=== PATIENT | male | born 1955 | race Caucasian/White ===

== ENCOUNTER → 2020-06-22 10:29 | Outpatient (REF) | payer OTHER, SELFPAY ==
--- NOTE | 2020-06-22 10:30 | CA_ITS ---
Transthoracic Echocardiogram Patient (Last, First, Middle): Delfin White G Gender: Male Date of : 1955 Age: 64 Procedure Date: 06/22/2020 Procedure Type: Transthoracic Echocardiogram Location: OP Height: 162.56 cm Weight: 108.86 kg BSA: 2.11 m2 Heart Rate: bpm BP: 110 / 80 mmHg Trenching Machine Operator: BLAIRE Prieto MD: Joe Hernandez MD Operators School Manager: Chris Logan MD Symptoms: Z95.3 S/P AVR W BIO PROS, I48.0 PAF, I44.7 LBBB Study Quality: Fair ECG Rhythm: Sinus Conclusions: - 1. Low normal LV systolic function with pseudonormal filling pattern 2. Moderately dilated left atrium 3. Bioprosthetic aortic valve present with normal calculated effective orifice area with mean gradient of 12 mm of mercury 4. Mild mitral regurgitation 5. Normal RV systolic pressure 6. No pericardial effusion Findings Left Ventricle Normal left ventricular cavity size. There is normal left ventricular wall thickness. The left ventricular systolic function is low normal. The visually estimated ejection fraction is between 50-55%. There is paradoxical septal motion consistent with a left bundle branch block. Spectral Doppler is indicative of a pseudonormal filling pattern. E/E prime ratio is between 8 and 15 consistent with indeterminate filling pressures. Right Ventricle Normal right ventricular cavity size and systolic function. Atria The left atrium is moderately dilated. There is lipomatous hypertrophy of the interatrial septum. There is no evidence of interatrial shunt. The right atrium is mildly dilated. Aortic Valve A bioprosthetic aortic valve is present. The prosthetic aortic valve appears to be functioning normally. The aortic valve was not well visualized. The mean gradient is 12 mmHg. The valve is well seated without any abnormal rocking motion. The leaflets are not well visualized. Calculated effective orifice area is within normal limits Mitral Valve There is mild anterior and severe posterior mitral leaflet thickening. There is severe mitral annular calcification. There is mild mitral valve regurgitation. There is no mitral valve stenosis. Pulmonic Valve The pulmonic valve was not well visualized. Tricuspid Valve Likely normal tricuspid valve structure and function. There is mild tricuspid valve regurgitation. The right ventricular systolic pressure is normal. The right ventricular systolic pressure is 28 mmHg. Normal right atrial pressure. There is no evidence of pulmonary hypertension. Great Vessels All visible segments of the aorta are normal in size. The pulmonary artery was not well visualized. Venous The inferior vena cava is normal in size and collapses greater than 50% with inspiration. Pericardium/Pleural There is no evidence of pericardial effusion. Prior Study Comparison No significant change compared to prior study dated: 05/26/2019. Measurements 2D Linear Measurements IVSd: 1.08 0.6-0.9/0.6-1.0 cm LVIDd: 5.73 3.9-5.3/4.2-5.9 cm LVIDd Index: 2.72 2.4-3.2/2.2-3.1 cm/m2 LVIDs: 3.95 2.0-3.6 cm LVPWd: 1.04 0.7-1.1 cm LA Diam: 4.70 2.7-3.8/3.0-4.0 cm LAIDs Index: 2.23 1.5-2.3 cm/m2 LV Mass: 307.43 67-162/88-224 g LV Mass Index: 145.70 43-95/49-115 g/m2 LVOT Diam: 2.00 3.0+(-)1.3 cm 2D Systolic Function EF 4C: 55.50 >55% EF 2C: 56.30 >55% EF BiP: 56.10 >55% Mitral Valve MV Pk E: 1.23 MV PK A: 1.13 MV Decel Time: 319.00 E/A: 1.10 E'Lateral: 8.49 E'Medial: 4.24 E/E' Med: 29.00 E/E' Lat: 14.50 PHT: 93.00 MVA PHT: 2.37 Decel Jones: 3.86 Aortic Valve AoV Pk Garret: 2.24 AoV Mn Garret: 1.60 AoV VTI: 0.50 AoV Pk Grad: 20.00 Aov Mn Grad: 12.00 SONY Cont.VTI: 2.14 LVOT LVOT Pk Garret: 1.52 LVOT Mn Garret: 1.02 LVOT VTI: 0.34 LVOT Pk Grad: 9.00 LVOT Mn Grad: 5.00 LVOT Diam: 2.00 LVOT Area: 3.14 Diastolic Function MV Pk E: 1.23 MV Pk A: 1.13 E/A: 1.10 E'Medial: 4.24 E/E' Med: 29.00 E' Laterial: 8.49 E/E' Lat: 14.50 Tricuspid Valve TR Pk Garret: 2.49 TR Pk Grad: 25.00 RA Press: 3.00 RVSP: 28.00 Great Vessels Aorta Ao Asc: 2.80 2.1-3.4 cm Ao Arch: 2.80 Updated in Other Vendor System with Status of Final Chris Logan MD electronically signed on 06/23/2020 12:18:09 PM with status of Final
== END ==
LOC: HO.CARD 10:29
PROVIDERS: PCP Internal Medicine; Visit Provider Internal Medicine
DX: I48.0 Paroxysmal atrial fibrillation (principal); I44.7 Left bundle-branch block, unspecified; Z95.3 Presence of xenogenic heart valve
CPT/HCPCS: 93306

== ENCOUNTER → 2020-07-11 09:35 | Outpatient (BNVA) | payer OTHER, SELFPAY | PROVIDERS: PCP Internal Medicine; Visit Provider Internal Medicine | DX: I48.0 Paroxysmal atrial fibrillation (principal); I44.7 Left bundle-branch block, unspecified; G47.33 Obstructive sleep apnea (adult) (pediatric); Z95.3 Presence of xenogenic heart valve; Z99.89 Dependence on other enabling machines and devices | CPT/HCPCS: 99212 ==

== ENCOUNTER → 2020-12-27 10:11 | Outpatient (BNVA) | payer OTHER, SELFPAY | PROVIDERS: PCP Internal Medicine; Referring Provider Internal Medicine; Visit Provider Internal Medicine | DX: I48.0 Paroxysmal atrial fibrillation (principal); I44.7 Left bundle-branch block, unspecified; G47.33 Obstructive sleep apnea (adult) (pediatric); Z99.89 Dependence on other enabling machines and devices; Z95.3 Presence of xenogenic heart valve; Z79.899 Other long term (current) drug therapy | CPT/HCPCS: 99212 ==

== ENCOUNTER → 2021-07-04 09:44 | Outpatient (BNVA) | payer OTHER, SELFPAY | PROVIDERS: PCP Internal Medicine; Referring Provider Internal Medicine; Visit Provider Internal Medicine | DX: I48.0 Paroxysmal atrial fibrillation (principal); I44.7 Left bundle-branch block, unspecified; G47.33 Obstructive sleep apnea (adult) (pediatric); Z79.01 Long term (current) use of anticoagulants; Z79.899 Other long term (current) drug therapy; Z95.3 Presence of xenogenic heart valve; Z99.89 Dependence on other enabling machines and devices | CPT/HCPCS: 93005; 99212 ==

== ENCOUNTER → 2021-12-24 09:30 | Outpatient (REF) | payer OTHER, SELFPAY ==
--- NOTE | 2021-12-24 09:33 | CA_ITS ---
Transthoracic Echocardiogram Patient (Last, First, Middle): Delfin White G Gender: Male Date of : 1955 Age: 66 Procedure Date: 12/24/2021 Procedure Type: Transthoracic Echocardiogram Location: OP Height: 165.1 cm Weight: 122.47 kg BSA: 2.25 m2 Heart Rate: bpm BP: 130 / 85 mmHg Spinning Lathe Operator Automatic: FIDE Referring MD: Joe Hernandez MD Symptoms: Z95.3 - Presence of xenogenic heart valve Study Quality: Adequate Conclusions: - 1. Low normal LV systolic function with LVEF of 50-55% with pseudonormal filling pattern 2. Normally function bioprosthetic aortic valve with mean gradient of 11 mmHg 3. Mildly dilated left atrium 4. Severe mitral calcification 5. Normal RV systolic pressure 6. No gross pericardial effusion Findings Left Ventricle Normal left ventricular cavity size. There is normal left ventricular wall thickness. The left ventricular systolic function is low normal. The visually estimated ejection fraction is between 50-55%. There is paradoxical septal motion consistent with post-operative status. Spectral Doppler is indicative of a pseudonormal filling pattern. Right Ventricle Normal right ventricular cavity size and systolic function. Atria The left atrium is mildly dilated. There is no evidence of interatrial shunt. The right atrium is normal in size. Aortic Valve A bioprosthetic aortic valve is present. The prosthetic aortic valve appears to be functioning normally. The mean gradient is 11 mmHg. There is no aortic valve regurgitation. The valve is well seated without any abnormal rocking motion. Mitral Valve There is moderate anterior and severe posterior mitral leaflet thickening. There is severe mitral annular calcification. There is no mitral valve regurgitation. There is no mitral valve stenosis. Pulmonic Valve The pulmonic valve was not well visualized. Tricuspid Valve Normal tricuspid valve structure. There is mild tricuspid valve regurgitation. The right ventricular systolic pressure is normal. The right ventricular systolic pressure is 30 mmHg. Normal right atrial pressure. There is no evidence of pulmonary hypertension. Great Vessels All visible segments of the aorta are normal in size. The pulmonary artery was not well visualized. Venous The inferior vena cava is normal in size and collapses greater than 50% with inspiration. Pericardium/Pleural There is no evidence of pericardial effusion. Prior Study Comparison No significant change compared to prior study dated: 06/22/2020. Measurements 2D Linear Measurements IVSd: 1.15 0.6-0.9/0.6-1.0 cm LVIDd: 5.57 3.9-5.3/4.2-5.9 cm LVIDd Index: 2.48 2.4-3.2/2.2-3.1 cm/m2 LVIDs: 4.08 2.0-3.6 cm LVPWd: 1.05 0.7-1.1 cm LA Diam: 4.60 2.7-3.8/3.0-4.0 cm LAIDs Index: 2.04 1.5-2.3 cm/m2 LV Mass: 308.14 67-162/88-224 g LV Mass Index: 136.95 43-95/49-115 g/m2 LVOT Diam: 2.00 3.0+(-)1.3 cm 2D Systolic Function EF 4C: 50.90 >55% EF 2C: 51.30 >55% Mitral Valve MV Pk E: 1.47 MV PK A: 0.96 MV Decel Time: 217.00 E/A: 1.50 E'Lateral: 7.51 E'Medial: 5.00 E/E' Med: 29.40 E/E' Lat: 19.60 PHT: 63.00 MVA PHT: 3.49 Decel [place]: 6.77 Aortic Valve AoV Pk Garret: 2.17 AoV Mn Garret: 1.59 AoV VTI: 0.53 AoV Pk Grad: 19.00 Aov Mn Grad: 11.00 SONY Cont.VTI: 2.02 LVOT LVOT Pk Garret: 1.42 LVOT Mn Garret: 0.99 LVOT VTI: 0.34 LVOT Pk Grad: 8.00 LVOT Mn Grad: 5.00 LVOT Diam: 2.00 LVOT Area: 3.14 Diastolic Function MV Pk E: 1.47 MV Pk A: 0.96 E/A: 1.50 E'Medial: 5.00 E/E' Med: 29.40 E' Laterial: 7.51 E/E' Lat: 19.60 Right Ventricle TAPSE (mm): 20.90 TVS' Garret: 8.27 Tricuspid Valve TR Pk Garret: 2.37 TR Pk Grad: 22.00 RA Press: 8.00 RVSP: 30.00 Great Vessels Aorta Sinus of Valsalva: 3.38 2.0-3.5 cm Ao Asc: 3.40 2.1-3.4 cm Ao Arch: 3.00 Updated in Other Vendor System with Status of Final Chris Logan MD electronically signed on 12/24/2021 4:18:20 PM with status of Final
== END ==
LOC: HO.CARD 09:30
PROVIDERS: Visit Provider Internal Medicine
DX: Z95.3 Presence of xenogenic heart valve (principal)
CPT/HCPCS: 93306

== ENCOUNTER → 2022-07-17 12:46 | Outpatient (BNVA) | payer MEDICARE, OTHER, SELFPAY | PROVIDERS: PCP Internal Medicine; Referring Provider Internal Medicine; Visit Provider Internal Medicine | DX: I48.0 Paroxysmal atrial fibrillation (principal); I44.7 Left bundle-branch block, unspecified; Z95.3 Presence of xenogenic heart valve; G47.33 Obstructive sleep apnea (adult) (pediatric); Z99.89 Dependence on other enabling machines and devices | CPT/HCPCS: 93005; 99212 ==

== ENCOUNTER 2022-11-04 10:31 | Observation (INO) | payer MEDICARE, SELFPAY ==
[2022-11-04] VITALS (7 sets, daily range): BP systolic 111–145; BP diastolic 63–84; PULSE 57–70; RESP 10–20; TEMP 36.6–37.1; O2SAT 96–98; BMI 46.3
--- NOTE | ~2022-11-04 | MR_ITS ---
EXAMINATION: MRI BRAIN WITHOUT CONTRAST CLINICAL INFORMATION: Dizziness. COMPARISON: CT head 11/04/2022. TECHNIQUE: Multiplanar MR imaging of the brain was performed without contrast. FINDINGS: There are a few tiny chronic infarcts within the right cerebellar hemisphere and scattered nonspecific foci of T2 FLAIR signal hyperintensity within the periventricular white matter that most likely represent a chronic manifestation of small vessel ischemia. No acute territorial infarct. No pathological magnetic susceptibility artifact. Intracranial vascular flow voids are grossly maintained. There is a small retrocerebellar arachnoid cyst. Otherwise no abnormal extra-axial collection. No intracranial mass effect or midline shift. Lateral and third ventricles are normal. No hydrocephalus. Midline structures including the cervicomedullary junction are normal. There is no mastoid or middle ear effusion. Mild paranasal sinus disease primarily affecting the ethmoid air cells. Globes and orbits are symmetric. MR/MR head/brain wo con IMPRESSION: There are a few tiny chronic infarcts within the right cerebellar hemisphere and scattered chronic small vessel ischemic changes within the periventricular white matter. Otherwise unremarkable examination. No evidence of acute territorial infarct or hemorrhage.
--- NOTE | ~2022-11-04 | CT_ITS ---
EXAMINATION: CT HEAD WITHOUT CONTRAST CLINICAL INFORMATION: Dizziness. COMPARISON: None. TECHNIQUE: Contiguous axial imaging was performed from the skull base to vertex without intravenous administration of contrast. This CT examination was performed using dose optimization techniques as appropriate, variously including the following: *Automated exposure control *Adjustment of mA and/or kV according to patient size (this includes techniques or standardized protocols for targeted exams where dose is matched to indication/reason for exam; i.e. 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 There is no evidence of acute intracranial hemorrhage or edematous territorial infarction. A few foci of hypoattenuation in the periventricular and deep white matter are consistent with mild microangiopathy. Sanchez-white matter differentiation is preserved. Proportional prominence of the ventricles and sulcal spaces. No evidence for obstructive hydrocephalus. No abnormal mass effect or midline shift. No extra-axial fluid collections. Megacisterna magna. No acute soft tissue or osseous abnormalities. The mastoid air cells and paranasal sinuses are clear. CT/CT head/brain wo IV con IMPRESSION: 1. Small age-indeterminate hypodensity in the right inferior cerebellar hemisphere. If neurologic deficits persist and an acute cerebrovascular accident is suspected, correlation with an MR brain is recommended. 2. No evidence of acute intracranial hemorrhage or edematous territorial infarction.
[2022-11-04 11:04] LABS: Hematocrit 42.2 % (42.0-52.0); Mean Corpuscular HGB Conc 33.2 g/dl (31.0-36.0); Mean Corpuscular Volume 96.3 fL (80.0-98.0); Mean Platelet Volume 9.7 fL (9.4-12.4); Platelet Count 223 X10*3/uL (160-400); Red Blood Count 4.38 X10*6/uL (4.60-5.80); Red Cell Distribution Width 12.6 % (11.0-16.0); White Blood Count 6.6 X10*3/uL (4.8-10.8)
[2022-11-04 11:17] LABS: Anion Gap 12 (12-20); Blood Urea Nitrogen 19 mg/dL (9-16); Calcium 9.6 mg/dL (8.4-10.2); Carbon Dioxide 26 mmol/L (22-29); Chloride 108 mmol/L (96-108); Creatinine Clr Calc Pharmacy 102.3; Estimated Glomerular Filt Rate > 60; Glucose Random 127 mg/dL (60-115); Potassium 5.5 mmol/L (3.3-5.1); Sodium 140 mmol/L (135-145)
--- NOTE | 2022-11-04 14:35 | ECG_ITS ---
Test Reason : LIGHT HEADEDNESS Blood Pressure : / mmHG Vent. Rate : 061 BPM Atrial Rate : 061 BPM P-R Int : 208 ms QRS Dur : 148 ms QT Int : 476 ms P-R-T Axes : 023 -36 063 degrees QTc Int : 479 ms Normal sinus rhythm Left axis deviation Left bundle branch block Abnormal ECG When compared with ECG of 15-JAN-2019 06:04, No significant changes seen Referred By: Andree Davila Electronically Signed By:ILANA URIARTE
--- NOTE | 2022-11-04 14:57 | ED.DIZZY ---
HPI - Dizziness General Chief Complaint: Dizziness Stated Complaint: dizzy spills Time Seen by Provider: 11/04/22 14:33 Source: patient Mode of arrival: ambulatory History of Present Illness HPI Narrative: 67-year-old male with history of paroxysmal atrial fibrillation as well as aortic valve replacement currently on Eliquis and states that he is taking all his medications and he has not missed any. Patient states that for the past couple of weeks he has been lightheaded and it does not seem to be associated with any activity or time of day. Patient denies the room spinning and states that over the past for 5 days the episodes have become more constant and that he notices while watching the TV sometimes his eyes will become blurry but then clear wrap again but otherwise denies any auditory/visual/speech difficulties and denies any difficulty ambulating or unilateral numbness/tingling/weakness. Related Data Home Medications Medication Instructions Recorded Confirmed celecoxib 200 mg capsule 200 mg PO BID 07/11/20 07/17/22 folic acid 1 mg tablet 1 mg PO DAILY 07/11/20 07/17/22 methotrexate sodium 2.5 mg tablet 20 mg PO QWEEK 07/11/20 07/17/22 Previous Rx's Medication Instructions Recorded metoprolol tartrate 25 mg tablet 25 mg PO BID 90 days #180 tabs 11/20/21 apixaban 5 mg tablet (Eliquis) 5 mg PO BID #180 caps 10/28/22 Allergies Allergy/AdvReac Type Severity Reaction Status Date / Time No Known Allergies Allergy Verified 07/04/21 09:58 [No Known Allergies*] Review of Systems Review of Systems: Pertinent positives and negatives as stated in HPI [facility] Past Medical History Source: nursing notes reviewed Medical History LBBB (left bundle branch block) JANNETTE on CPAP PAF (paroxysmal atrial fibrillation) Rheumatoid arthritis, unspecified Surgical History History of cardiac cath Hx of cardiac cath Status post aortic valve replacement with bioprosthetic valve Family History Family History Mother No problems noted. Father No problems noted. Social History Social History Patient Tobacco Use Status: Former Tobacco user Quit Date: 18 yrs ago Smoked in Last 30 Days: No Use of substances other than those prescribed or required for medical reasons: No Advance Directives: No Advance Directives Information Provided: No Physical Exam Vital Signs: Vital Signs: Last Vital Signs Temp 97.8 F 11/04/22 19:00 Pulse 59 11/04/22 19:00 Resp 14 11/04/22 19:00 BP 140/64 H 11/04/22 19:00 Pulse Ox 96 11/04/22 19:00 O2 Del Method Room Air 11/04/22 19:00 BMI result Body Mass Index 46.3 VITAL SIGNS: Reviewed. GENERAL: Well developed, well nourished, in no acute distress. HEAD: Normocephalic/atraumatic EYES: PERRLA, EOMI EARS: Ext canals without abnormality EXCEPT left external canal there is what appears to be a benign polyp has smooth contours no ulcerations and no erythema, TMs non-bulging and non-erythematous NOSE: Nares patent bilateral OROPHARYNX: no oral lesions noted, posterior pharynx clear NECK: Supple, no adenopathy LUNGS: Normal breath sounds. No adventitious sounds or accessory muscle use. SpO2<> CARDIOVASCULAR: Regular rate and rhythm without noted murmurs, no JVD or lower extremity edema. ABDOMEN: Soft, non-tender, non-distended with bowel sounds. No rigidity. No guarding. No palpable masses or hernias noted MUSCULOSKELETAL: No tenderness, deformities, or effusions noted on gross inspection. EXTREMITIES: No cyanosis, clubbing or edema. SKIN: Inspection of the skin reveals no rashes, ulcerations, jaundice, pallor, or petechiae. NEUROLOGIC: Alert and oriented x 4. Strength and sensation to light touch were grossly intact x 4, no facial asymmetry, no pronator drift, cranial nerves 2-12 are grossly intact, heel to anderson is intact, no truncal ataxia and ambulation gait is steady. Medications Administered Discontinued Medications Generic Name Dose Route Start Last Admin Trade Name Freq PRN Reason Stop Dose Admin Sodium Chloride 1,000 mls @ 999 mls/hr 11/04/22 15:00 11/04/22 18:00 Ns IV 11/04/22 16:00 Infused .Q1H1M BJ Infusion Medical Decision Making Medical Decision Making MDM Narrative: 67-year-old male who reports being dizzy during the interview process but appears hemodynamically stable, nonfocal but on blood thinners and will pursue head CT. Orthostatics are pending and otherwise review lab work done so far there is no evidence infection, anemia, however there is a noted hyperkalemia of 5.5. 182: I was not called on the CT scan which was officially read by Radiology as an age indeterminate hypodensity at the right inferior cerebellar region, patient is already on anticoagulation with Eliquis, his feelings of lightheadedness continue to persist, after 1 L of IV fluids and repeat basic metabolic panel his potassium level has improved. I am reaching out to Neurology as are MRI department has left. 1919: I discussed case with Neurology, Dr. Thomas, who agrees that should follow-up with MRI in the morning and that there are no other acute interventions to be done at this time. Differential Diagnosis Please see the discussion above Consult Healthcare Provider Management of the patient was discussed with: Hospitalist and Associate Counsel Please see the discussion above Lab Data Please see the discussion above 11/04/22 10:54 11/04/22 10:54 Labs: Lab Results 11/04/22 11/04/22 11/04/22 Range/Units 10:54 10:54 15:19 WBC 6.6 (4.8-10.8) X10*3/uL RBC 4.38 L (4.60-5.80) X10*6/uL Hgb 14.0 (14.0-18.0) g/dl Hct 42.2 (42.0-52.0) % MCV 96.3 (80.0-98.0) fL MCH 32.0 (27.0-33.0) pg MCHC 33.2 (31.0-36.0) g/dl RDW 12.6 (11.0-16.0) % Plt Count 223 (160-400) X10*3/uL MPV 9.7 (9.4-12.4) fL Absolute Nucleated RBC 0.000 (0.0-0.012) X10*3/uL Nucleated RBC % (auto) 0.0 (0.0-0.2) /100WBC PT 13.0 (10.0-13.1) SEC INR 1.1 (0.9-1.1) Sodium 140 (135-145) mmol/L Potassium 5.5 H (3.3-5.1) mmol/L Chloride 108 (96-108) mmol/L Carbon Dioxide 26 (22-29) mmol/L Anion Gap 12 (12-20) BUN 19 H (9-16) mg/dL Creatinine 0.86 (0.5-1.4) mg/dL Estim Creat Clear Calc 102.3 Estimated GFR > 60 Random Glucose 127 H (60-115) mg/dL Calcium 9.6 (8.4-10.2) mg/dL Magnesium 1.9 (1.6-2.6) mg/dL Troponin I High Sens (<3.5-35.0) ng/L Urine Color Urine Appearance Urine pH (5.0-9.0) Ur Specific [place] (1.005-1.025) Urine Protein (Neg-Trace) mg/dL Urine Glucose (UA) (Negative) mg/dL Urine Ketones (Negative) mg/dL Urine Blood (Negative) Urine Nitrite (Negative) Ur Leukocyte Esterase (Negative) 11/04/22 11/04/22 11/04/22 Range/Units 15:19 16:02 17:24 WBC (4.8-10.8) X10*3/uL RBC (4.60-5.80) X10*6/uL Hgb (14.0-18.0) g/dl Hct (42.0-52.0) % MCV (80.0-98.0) fL MCH (27.0-33.0) pg MCHC (31.0-36.0) g/dl RDW (11.0-16.0) % Plt Count (160-400) X10*3/uL MPV (9.4-12.4) fL Absolute Nucleated RBC (0.0-0.012) X10*3/uL Nucleated RBC % (auto) (0.0-0.2) /100WBC PT (10.0-13.1) SEC INR (0.9-1.1) Sodium 143 (135-145) mmol/L Potassium 5.0 (3.3-5.1) mmol/L Chloride 108 (96-108) mmol/L Carbon Dioxide 27 (22-29) mmol/L Anion Gap 13 (12-20) BUN 18 H (9-16) mg/dL Creatinine 0.78 (0.5-1.4) mg/dL Estim Creat Clear Calc 112.8 Estimated GFR > 60 Random Glucose 87 (60-115) mg/dL Calcium 9.4 (8.4-10.2) mg/dL Magnesium (1.6-2.6) mg/dL Troponin I High Sens 3.8 (<3.5-35.0) ng/L Urine Color Yellow Urine Appearance Clear Urine pH 6.0 (5.0-9.0) Ur Specific [place] <= 1.005 (1.005-1.025) Urine Protein Negative (Neg-Trace) mg/dL Urine Glucose (UA) Negative (Negative) mg/dL Urine Ketones Negative (Negative) mg/dL Urine Blood Negative (Negative) Urine Nitrite Negative (Negative) Ur Leukocyte Esterase Negative (Negative) Independent Interpretation I performed an independent interpretation of an: EKG Interpretation: Normal sinus rhythm with first-degree AV block, LBBB at baseline, no STEMI, QTC is within normal limits. Radiology Impression Radiologist Impression: My interpretation is in agreement with radiology's impression. External Record Review External record reviewed: Outpatient record and Prior outpatient labs Chronic Conditions Patient?s care impacted by: Hypertension and Other Paroxysmal atrial fibrillation Discharge Plan Discharge Clinical Impression: CVA (cerebrovascular accident), PAF (paroxysmal atrial fibrillation), Lightheadedness Patient Disposition: Admitted As Inpatient Prescriptions: No Action metoprolol tartrate 25 mg tablet 25 mg PO BID 90 Days Qty: 180 3RF Eliquis 5 mg tablet 5 mg PO BID Qty: 180 3RF folic acid 1 mg tablet 1 mg PO DAILY methotrexate sodium 2.5 mg tablet 20 mg PO QWEEK celecoxib 200 mg capsule 200 mg PO BID
[2022-11-04 15:38] LABS: INTERNATIONAL NORM RATIO 1.1 (0.9-1.1)
[2022-11-04 15:47] LABS: Magnesium 1.9 mg/dL (1.6-2.6)
[2022-11-04 15:56] LABS: Troponin-I High Sensitivity 3.8 ng/L (<3.5-35.0)
[2022-11-04 16:11] LABS: Appearance Urine Clear; Color Urine Yellow; Glucose Urine UA Negative (Negative); Leukocyte Esterase Urine Negative (Negative); Nitrite Urine Negative (Negative); Specific Gravity - Urine <= 1.005 (1.005-1.025); Urine Blood Negative (Negative); Urine Ketones Negative (Negative); Urine Protein Negative (Neg-Trace)
[2022-11-04] MEDS: 0.9 % Sodium Chloride 1,000 ML 999 ML IV (16:28)
[2022-11-04 17:50] LABS: Anion Gap 13 (12-20); Blood Urea Nitrogen 18 mg/dL (9-16); Calcium 9.4 mg/dL (8.4-10.2); Carbon Dioxide 27 mmol/L (22-29); Chloride 108 mmol/L (96-108); Creatinine Clr Calc Pharmacy 112.8; Estimated Glomerular Filt Rate > 60; Glucose Random 87 mg/dL (60-115); Sodium 143 mmol/L (135-145)
--- NOTE | 2022-11-04 18:34 | PC.NURSE ---
MRI screening sheet filled out tonight and placed in his chart. patient continues with some dizziness and stated that it is positional.
--- NOTE | 2022-11-04 20:12 | P.HPHOSP_ITS ---
History of Present Illness Date of Service: 11/04/22 <JERMAINE Cunningham - Last Filed: 11/04/22 20:25> Attending physician on admission: Luis Lyman <JERMAINE Cunningham - Last Filed: 11/04/22 20:25> Chief Complaint: dizziness <JERMAINE Cunningham - Last Filed: 11/04/22 20:25> 67-year-old male with history of paroxysmal atrial fibrillation anticoagulated with Eliquis, left bundle branch block s/p cardiac catheterization, history aortic stenosis s/p TAVR, obstructive sleep apnea compliant with CPAP, and rheumatoid arthritis presented to the emergency department for evaluation of lightheadedness. Reports he had a single episode of lightheadedness that lasted for several days about 1 month ago but then resolved. He had recurrence of symptoms about 4 days ago that has persisted. Describes this as a room spinning dizziness that occurs primarily with change of position and head movements. There is occasionally nausea and vomiting with blurred vision. He denies any symptoms currently. Denies any focal weakness, paresthesias, diplopia, dysphagia, slurred speech, facial droop, near syncope, palpitations, shortness of breath, or chest pain. No history of CVA. Reports compliance with medications including Eliquis. On arrival, vital signs stable. No leukocytosis. No anemia. Renal function normal, electrolyte levels normal. Troponin within normal limits. Urinalysis unremarkable. Head CT showing small age-indeterminate hypodensity in right inferior cerebellar hemisphere, correlate with MR brain. No evidence of acute intracranial hemorrhage or territorial infarct. In the ED, given 1 L IV NS. <JERMAINE Cunningham - Last Filed: 11/04/22 20:25> Review of Systems Review of Systems: General: No fevers, malaise, unintentional weight loss HEENT: No blurred vision, diplopia. No sore throat, nasal congestion, rhinorrhea, sinus pain, ear pain Cardiovascular: No chest pain, palpitations, or leg edema Respiratory: No shortness of breath, wheezing, cough GI: No abdominal pain, nausea, vomiting, diarrhea, constipation, melena, hematochezia : No dysuria, hematuria, increased urinary frequency, decreased urinary output MSK: No myalgia, back pain Neuro: No headaches, weakness, paresthesias. +dizziness Skin: No rashes or lesions <JERMAINE Cunningham - Last Filed: 11/04/22 20:25> FOR[facility]LY [facility] Medical History: Medical History (Updated 11/04/22 @ 20:18 by JERMAINE Cunningham) CVA (cerebrovascular accident) LBBB (left bundle branch block) JANNETTE on CPAP PAF (paroxysmal atrial fibrillation) Rheumatoid arthritis, unspecified <JERMAINE Cunningham - Last Filed: 11/04/22 20:25> Family History: Family History Mother No problems noted. Father No problems noted. <JERMAINE Cunningham - Last Filed: 11/04/22 20:25> Surgical History: Surgical History History of cardiac cath Hx of cardiac cath Status post aortic valve replacement with bioprosthetic valve <JERMAINE Cunningham - Last Filed: 11/04/22 20:25> Social History: Social History Patient Tobacco Use Status: Former Tobacco user Quit Date: 18 yrs ago Smoked in Last 30 Days: No Use of substances other than those prescribed or required for medical reasons: No Advance Directives: No Advance Directives Information Provided: No <JERMAINE Cunningham - Last Filed: 11/04/22 20:25> Meds Allergies/Adverse reactions: Allergies Allergy/AdvReac Type Severity Reaction Status Date / Time No Known Allergies Allergy Verified 07/04/21 09:58 [No Known Allergies*] <JERMAINE Cunningham - Last Filed: 11/04/22 20:25> Active Medications: Current Medications Acetaminophen (Acetaminophen 325 Mg Tablet) 650 mg PO Q6H PRN PRN Reason: Pain, Mild (Pain Scale 1-3) Aspirin (Aspirin Enteric Coated 81 Mg Tablet.Dr) 81 mg PO DAILY BJ Docusate Sodium (Docusate Sodium 100 Mg Capsule) 100 mg PO DAILY PRN PRN Reason: Constipation Ondansetron HCl (Ondansetron Hcl 4 Mg/2 Ml Vial) 4 mg IVPUSH Q8H PRN PRN Reason: Nausea and Vomiting Pharmacy Consult (Consult Rx Perform Med Rec) 1 each MISCELLANE ONCE PRN PRN Reason: Consult order Sodium Chloride (0.9 % Sodium Chloride Flush 3 Ml Syringe) 3 ml IVFLUSH QSHIFT [facility] <JERMAINE Cunningham - Last Filed: 11/04/22 20:25> Home medications: Home Medications Medication Instructions Recorded Confirmed Last Taken Type celecoxib 200 mg capsule 200 mg PO BID 07/11/20 11/04/22 11/04/22 History folic acid 1 mg tablet 1 mg PO DAILY 07/11/20 11/04/22 11/04/22 History methotrexate sodium 2.5 mg tablet 20 mg PO TU@0900 07/11/20 11/04/22 10/29/22 History multivitamin 1 tab PO DAILY 11/04/22 11/04/22 11/04/22 History <JERMAINE Cunningham - Last Filed: 11/04/22 20:25> Physical Exam Vital Signs and Narrative: Vital Signs: Last Vital Signs Temp 97.8 F 11/04/22 19:00 Pulse 59 11/04/22 19:00 Resp 14 11/04/22 19:00 BP 140/64 H 11/04/22 19:00 Pulse Ox 96 11/04/22 19:00 O2 Del Method Room Air 11/04/22 19:00 BMI result Body Mass Index 46.3 <JERMAINE Cunningham - Last Filed: 11/04/22 20:25> Constitutional - Awake and Alert, No apparent distress Eyes - PERRLA, EOMI Cardiovascular - S1S2, RRR, No edema Respiratory - Normal lung expansion, Normal respiratory effort, No respiratory distress, CTA bilaterally Gastrointestinal - NT / ND; +BS; No rebound or guarding Extremities - no calf tenderness bilaterally, no swelling Skin - Warm/Dry Neurological - Alert & oriented x3, CN II-XII in tact, 5/5 strength BUE and BLE. Negative pronator drift. [id number] coordination intact Psychological - Appropriate affect <JERMAINE Cunningham - Last Filed: 11/04/22 20:25> Results Labs CBC and Chem 7: 11/04/22 10:54 11/04/22 17:24 <JERMAINE Cunningham - Last Filed: 11/04/22 20:25> Labs: Laboratory Results - last 24 hr 11/04/22 11/04/22 11/04/22 10:54 10:54 15:19 MCV 96.3 MCH 32.0 MCHC 33.2 RDW 12.6 Plt Count 223 MPV 9.7 Absolute Nucleated RBC 0.000 Nucleated RBC % (auto) 0.0 PT 13.0 INR 1.1 Anion Gap 12 Estim Creat Clear Calc 102.3 Estimated GFR > 60 Random Glucose 127 H Calcium 9.6 Magnesium 1.9 Troponin I High Sens Urine Color Urine Appearance Urine pH Ur Specific [place] Urine Protein Urine Glucose (UA) Urine Ketones Urine Blood Urine Nitrite Ur Leukocyte Esterase 11/04/22 11/04/22 11/04/22 15:19 16:02 17:24 MCV MCH MCHC RDW Plt Count MPV Absolute Nucleated RBC Nucleated RBC % (auto) PT INR Anion Gap 13 Estim Creat Clear Calc 112.8 Estimated GFR > 60 Random Glucose 87 Calcium 9.4 Magnesium Troponin I High Sens 3.8 Urine Color Yellow Urine Appearance Clear Urine pH 6.0 Ur Specific [place] <= 1.005 Urine Protein Negative Urine Glucose (UA) Negative Urine Ketones Negative Urine Blood Negative Urine Nitrite Negative Ur Leukocyte Esterase Negative <JERMAINE Cunningham - Last Filed: 11/04/22 20:25> Imaging Radiologist's Impressions: Impressions Head CT 11/04/22 17:18 IMPRESSION: 1. Small age-indeterminate hypodensity in the right inferior cerebellar hemisphere. If neurologic deficits persist and an acute cerebrovascular accident is suspected, correlation with an MR brain is recommended. 2. No evidence of acute intracranial hemorrhage or edematous territorial infarction. <JERMAINE Cunningham - Last Filed: 11/04/22 20:25> Assessment and Plan (1) CVA (cerebrovascular accident): Status: Acute <JERMAINE Cunningham - Last Filed: 11/04/22 20:25> 67-year-old male with history of paroxysmal atrial fibrillation anticoagulated with Eliquis, left bundle branch block s/p cardiac catheterization, history aortic stenosis s/p TAVR, obstructive sleep apnea compliant with CPAP, and rheumatoid arthritis to be observed for acute CVA. #Subacute CVA -Head ct with age indeterminate hypodensity in the right inferior cerebellar hemisphere -MRI brain ordered -Not a TPA candidate- subacute stroke and pt on eliquis -continue Eliquis 5 mg b.i.d.. Initiate 81 mg ASA daily -appreciate neurology input -echocardiogram with bubble study ordered -passed bedside swallow eval -lipid panel pending. Initiate atorvastatin -PT/OT eval -monitor on telemetry # paroxysmal atrial fibrillation-rate controlled -continue Eliquis 5 mg b.i.d. -continue metoprolol for rate control # JANNETTE -continue CPAP at bedtime # rheumatoid arthritis -continue methotrexate DVT prophylaxis-on Eliquis Full code <JERMAINE Cunningham - Last Filed: 11/04/22 20:25> 67-year-old male with history of paroxysmal atrial fibrillation anticoagulated with Eliquis, left bundle branch block s/p cardiac catheterization, history aortic stenosis s/p TAVR, obstructive sleep apnea compliant with CPAP, and rheumatoid arthritis to be observed for acute CVA. #Subacute CVA -Head ct with age indeterminate hypodensity in the right inferior cerebellar hemisphere -MRI brain ordered -Not a TPA candidate- subacute stroke and pt on eliquis -continue Eliquis 5 mg b.i.d.. Initiate 81 mg ASA daily -appreciate neurology input -echocardiogram ordered -passed bedside swallow eval -lipid panel pending. Initiate atorvastatin -PT/OT eval -monitor on telemetry # paroxysmal atrial fibrillation-rate controlled -continue Eliquis 5 mg b.i.d. -continue metoprolol for rate control # JANNETTE -continue CPAP at bedtime # rheumatoid arthritis -continue methotrexate DVT prophylaxis-on Eliquis Full code <Luis Lyman MD - Last Filed: 11/04/22 20:32> Time Spent With Patient Time: Total time managing care of this patient today ____ minutes. <JERMAINE Cunningham - Last Filed: 11/04/22 20:25> Quality Stroke Does the patient have a stroke diagnosis?: Yes <JERMAINE Cunningham - Last Filed: 11/04/22 20:25> Reason for No Anti-thrombotic by Day Two: Drug treatment not indicated <JERMAINE Cunningham - Last Filed: 11/04/22 20:25> VTE Prior VTE?: No <JERMAINE Cunningham - Last Filed: 11/04/22 20:25> VTE Risk Level:: Medical - moderate - high <JERMAINE Cunningham - Last Filed: 11/04/22 20:25> VTE Device Contraindication: Treatment Not Indicated <JERMAINE Cunningham - Last Filed: 11/04/22 20:25> VTE Drug Contraindication: N/A - Med Ordered <JERMAINE Cunningham - Last Filed: 11/04/22 20:25>
--- NOTE | 2022-11-04 20:27 | PHA.MEDREC ---
Pharmacy Consult ? Medication Reconciliation Pharmacy has completed the medication reconciliation. spoke with patient in the ED who knew all home medications and had a list with him. Patient Took all AM meds
[2022-11-04 20:58] LABS: Alanine Aminotransferase 22 U/L (0-40); Alkaline Phosphatase 55 U/L (39-117); Aspartate Amino Transferase 23 U/L (5-37); Bilirubin Direct 0.1 mg/dL (0.0-0.5); Bilirubin Total 0.5 mg/dL (0.0-1.0); Cholesterol 212 mg/dL; HDL Cholesterol 37 mg/dL; LDL Cholesterol Calculated 136 mg/dl; Total Protein 6.6 g/dL (6.5-8.0); Triglycerides 195 mg/dL
[2022-11-04] MEDS: Meclizine HCl 12.5 MG TABLET PO (20:59)
[2022-11-04] MEDS: Aspirin Enteric Coated 81 MG TABLET.DR PO (21:03)
[2022-11-05] VITALS: BP 140/68; PULSE 63; RESP 18; TEMP 36.2; O2SAT 98
[2022-11-05] MEDS: 0.9 % Sodium Chloride Flush 3 ML SYRINGE IVFLUSH ×3 (00:55→17:37)
[2022-11-05 03:42] VITALS: BP 141/81; PULSE 74; RESP 18; TEMP 36.8; O2SAT 97
[2022-11-05 04:45] LABS: Estimated Average Glucose 105 mg/dL; Hemoglobin A1c % 5.3 %
[2022-11-05 06:47] LABS: MANUAL DIFF FLAG NO
--- NOTE | 2022-11-05 07:00 | CA_ITS ---
Transthoracic Echocardiogram Patient (Last, First, Middle): Delfin White G Gender: Male Date of : 1955 Age: 67 Procedure Date: 11/05/2022 Procedure Type: Transthoracic Echocardiogram Location: [facility] [place] Height: 162.56 cm Weight: 122.47 kg BSA: 2.22 m2 Heart Rate: 60 bpm BP: 141 / 81 mmHg Assembly Worker: FIDE Referring MD: Luis Lyman MD Symptoms: cva w bubble Study Quality: Adequate ECG Rhythm: Sinus Conclusions: - The left ventricular systolic function is normal. The calculated ejection fraction is 57% by biplane method. - There is no evidence of interatrial shunt by agitated saline. - A bioprosthetic aortic valve is present. The prosthetic aortic valve appears to be functioning normally. Findings Left Ventricle Normal left ventricular cavity size. There is moderately increased left ventricular wall thickness. The left ventricular systolic function is normal. The calculated ejection fraction is 57% by biplane method. There is no evidence of regional wall motion abnormalities. Evidence suggests grade I (mild) diastolic dysfunction. Right Ventricle Normal right ventricular cavity size and systolic function. Atria The left atrium is moderately dilated. There is no evidence of interatrial shunt by agitated saline. (rest + valsalva). The right atrium is mildly dilated. Aortic Valve A bioprosthetic aortic valve is present. The prosthetic aortic valve appears to be functioning normally. There is trace (trivial) aortic valve regurgitation. Mitral Valve There is moderate mitral annular calcification. There is mild mitral valve regurgitation. Cannot exclude mild mitral stenosis. Pulmonic Valve The pulmonic valve is likely normal. Tricuspid Valve There is mild tricuspid valve regurgitation. There is no evidence of pulmonary hypertension. Great Vessels The asc aorta is normal in size. Venous The inferior vena cava is normal in size and collapses greater than 50% with inspiration. Pericardium/Pleural There is no evidence of pericardial effusion. Prior Study Comparison No significant change compared to prior study dated: 12/24/2021. Measurements 2D Linear Measurements IVSd: 1.35 0.6-0.9/0.6-1.0 cm LVIDd: 5.40 3.9-5.3/4.2-5.9 cm LVIDd Index: 2.43 2.4-3.2/2.2-3.1 cm/m2 LVIDs: 3.61 2.0-3.6 cm LVPWd: 1.22 0.7-1.1 cm LA Diam: 4.60 2.7-3.8/3.0-4.0 cm LAIDs Index: 2.07 1.5-2.3 cm/m2 LV Mass: 362.75 67-162/88-224 g LV Mass Index: 163.40 43-95/49-115 g/m2 LVOT Diam: 2.00 3.0+(-)1.3 cm 2D Systolic Function EF 4C: 57.50 >55% EF 2C: 57.30 >55% EF BiP: 57.20 >55% Mitral Valve MV VTI: 0.59 MV Pk Garret: 1.45 MV Mn Garret: 0.96 MV Pk Grad: 8.00 MV Mn Grad: 4.00 MV Pk E: 1.29 MV PK A: 1.25 MV Decel Time: 366.00 E/A: 1.00 E'Lateral: 8.49 E'Medial: 5.33 E/E' Med: 24.20 E/E' Lat: 15.20 PHT: 107.00 MVA PHT: 2.06 MVA Continuity: 1.47 Decel Giles: 3.51 Aortic Valve AoV Pk Garret: 2.09 AoV Mn Garret: 1.52 AoV VTI: 0.48 AoV Pk Grad: 17.00 Aov Mn Grad: 10.00 SONY Cont.VTI: 1.77 LVOT LVOT Pk Garret: 1.17 LVOT Mn Garret: 0.76 LVOT VTI: 0.27 LVOT Pk Grad: 5.00 LVOT Mn Grad: 3.00 LVOT Diam: 2.00 LVOT Area: 3.14 Diastolic Function MV Pk E: 1.29 MV Pk A: 1.25 E/A: 1.00 E'Medial: 5.33 E/E' Med: 24.20 E' Laterial: 8.49 E/E' Lat: 15.20 Right Ventricle TAPSE (mm): 19.40 TVS' Garret: 10.30 Tricuspid Valve TR Pk Garret: 2.71 TR Pk Grad: 29.00 RA Press: 8.00 RVSP: 37.00 Great Vessels Aorta Ao Asc: 3.40 2.1-3.4 cm Updated in Other Vendor System with Status of Final Joe Hernandez MD electronically signed on 11/05/2022 5:14:00 PM with status of Final
[2022-11-05 07:02] LABS: Basophils Percent Auto 0.6 % (0-2); Eosinophils Absolute Auto 0.2 X10*3/uL (0.0-0.4); Eosinophils Percent Auto 2.5 % (0-4); Hematocrit 39.9 % (42.0-52.0); Hemoglobin 13.3 g/dl (14.0-18.0); Imm Gran Abs Auto 0.03 X10*3/uL (0.00-0.03); Imm Gran Pct Auto 0.4 % (0.0-0.4); Lymphocytes Absolute Auto 2.2 X10*3/uL (1.2-4.9); Lymphocytes Percent Auto 30.7 % (20-40); Mean Corpuscular HGB Conc 33.3 g/dl (31.0-36.0); Mean Corpuscular Hemoglobin 32.6 pg (27.0-33.0); Mean Corpuscular Volume 97.8 fL (80.0-98.0); Mean Platelet Volume 10.1 fL (9.4-12.4); Monocytes Absolute Auto 0.8 X10*3/uL (0.1-1.2); Monocytes Percent Auto 11.4 % (2-11); Neutrophils Percent Auto 54.4 % (45-73); Platelet Count 208 X10*3/uL (160-400); Red Blood Count 4.08 X10*6/uL (4.60-5.80); Red Cell Distribution Width 12.8 % (11.0-16.0); White Blood Count 7.3 X10*3/uL (4.8-10.8)
[2022-11-05 07:24] LABS: Anion Gap 14 (12-20); Blood Urea Nitrogen 17 mg/dL (9-16); Calcium 9.4 mg/dL (8.4-10.2); Carbon Dioxide 26 mmol/L (22-29); Chloride 108 mmol/L (96-108); Creatinine Clr Calc Pharmacy 89.8; Estimated Glomerular Filt Rate > 60; Glucose Random 94 mg/dL (60-115); Potassium 4.7 mmol/L (3.3-5.1); Sodium 143 mmol/L (135-145)
[2022-11-05 07:30] VITALS: BP 134/87; PULSE 83; RESP 20; TEMP 36.2; O2SAT 97
[2022-11-05 07:33] VITALS: BP 134/87; PULSE 83; O2SAT 97
[2022-11-05] MEDS: Apixaban 5 MG TABLET PO (09:38)
[2022-11-05] MEDS: Atorvastatin Calcium 40 MG TABLET PO (09:38)
[2022-11-05] MEDS: Aspirin Enteric Coated 81 MG TABLET.DR PO (09:39)
[2022-11-05] MEDS: Multivitamin TABLET 1 TAB PO (09:39)
[2022-11-05] MEDS: Celecoxib 200 MG CAPSULE PO (09:39)
[2022-11-05] MEDS: Metoprolol Tartrate 25 MG TABLET PO (09:40)
[2022-11-05] MEDS: Folic Acid 1 MG TABLET PO (09:40)
--- NOTE | 2022-11-05 09:48 | P.PNIM_ITS ---
Subjective Subjective Date of Service: 11/05/22 Review of Systems Follow up CVA doing better today no c/o pain or weakness Physical Exam Vital Signs: Vital Signs: Last Vital Signs Temp 97.1 F 11/05/22 07:30 Pulse 83 11/05/22 07:33 Resp 20 11/05/22 07:30 BP 134/87 11/05/22 07:33 Pulse Ox 97 11/05/22 07:33 O2 Del Method Room Air 11/05/22 07:30 BMI result Body Mass Index 46.3 Appearing in no acute distress lung sounds are clear to auscultation heart regular rate rhythm, clear S1, S2 positive bowel sounds, abdomen is soft, nontender neuro patient is alert x3, no focal deficits Objective Data Active Medications Acetaminophen (Acetaminophen 325 Mg Tablet) 650 mg PO Q6H PRN PRN Reason: Pain, Mild (Pain Scale 1-3) Apixaban (Apixaban 5 Mg Tablet) 5 mg PO BID [facility] Last Admin: 11/05/22 09:38 Dose: 5 mg Documented By: LIVE Aspirin (Aspirin Enteric Coated 81 Mg Tablet.Dr) 81 mg PO DAILY [facility] Last Admin: 11/05/22 09:39 Dose: 81 mg Documented By: LIVE Atorvastatin Calcium (Atorvastatin Calcium 40 Mg Tablet) 40 mg PO DAILY [facility] Last Admin: 11/05/22 09:38 Dose: 40 mg Documented By: LIVE Celecoxib (Celecoxib 200 Mg Capsule) 200 mg PO BID [facility] Last Admin: 11/05/22 09:39 Dose: 200 mg Documented By: LIVE Docusate Sodium (Docusate Sodium 100 Mg Capsule) 100 mg PO DAILY PRN PRN Reason: Constipation Folic Acid (Folic Acid 1 Mg Tablet) 1 mg PO DAILY [facility] Last Admin: 11/05/22 09:40 Dose: 1 mg Documented By: LIVE Meclizine HCl (Meclizine Hcl 25 Mg Tablet) 25 mg PO Q6H PRN PRN Reason: Vertigo Metoprolol Tartrate (Metoprolol Tartrate 25 Mg Tablet) 25 mg PO BID [facility]; Protocol Last Admin: 11/05/22 09:40 Dose: 25 mg Documented By: LIVE Multivitamins/Vitamin C (Multivitamin Tablet) 1 tab PO DAILY [facility] Last Admin: 11/05/22 09:39 Dose: 1 tab Documented By: LIVE Ondansetron HCl (Ondansetron Hcl 4 Mg/2 Ml Vial) 4 mg IVPUSH Q8H PRN PRN Reason: Nausea and Vomiting Pharmacy Consult (Consult Rx Perform Med Rec) 1 each MISCELLANE ONCE PRN PRN Reason: Consult order Sodium Chloride (0.9 % Sodium Chloride Flush 3 Ml Syringe) 3 [facility] Last Admin: 11/05/22 09:40 Dose: 3 ml Documented By: LIVE Labs 11/05/22 06:02 11/05/22 06:02 Labs: Laboratory Results - last 24 hr 11/04/22 11/04/22 11/04/22 10:54 10:54 10:54 MCV 96.3 MCH 32.0 MCHC 33.2 RDW 12.6 Plt Count 223 MPV 9.7 Immature Gran % (Auto) Neut % (Auto) Lymph % (Auto) Brooke % (Auto) Eos % (Auto) Baso % (Auto) Lymph # (Auto) Brooke # (Auto) Eos # (Auto) Baso # (Auto) Abs Immat Gran (auto) Absolute Neuts (auto) Absolute Nucleated RBC 0.000 Nucleated RBC % (auto) 0.0 PT INR Anion Gap 12 Estim Creat Clear Calc 102.3 Estimated GFR > 60 Random Glucose 127 H Estimat Average Glucose 105 Hemoglobin A1c % 5.3 Calcium 9.6 Magnesium 1.9 Total Bilirubin Direct Bilirubin AST ALT Alkaline Phosphatase Troponin I High Sens Total Protein Albumin Triglycerides Cholesterol LDL Cholesterol, Calc HDL Cholesterol Urine Color Urine Appearance Urine pH Ur Specific [place] Urine Protein Urine Glucose (UA) Urine Ketones Urine Blood Urine Nitrite Ur Leukocyte Esterase 11/04/22 11/04/22 11/04/22 15:19 15:19 16:02 MCV MCH MCHC RDW Plt Count MPV Immature Gran % (Auto) Neut % (Auto) Lymph % (Auto) [place] % (Auto) Eos % (Auto) Baso % (Auto) Lymph # (Auto) [place] # (Auto) Eos # (Auto) Baso # (Auto) Abs Immat Gran (auto) Absolute Neuts (auto) Absolute Nucleated RBC Nucleated RBC % (auto) PT 13.0 INR 1.1 Anion Gap Estim Creat Clear Calc Estimated GFR Random Glucose Estimat Average Glucose Hemoglobin A1c % Calcium Magnesium Total Bilirubin Direct Bilirubin AST ALT Alkaline Phosphatase Troponin I High Sens 3.8 Total Protein Albumin Triglycerides Cholesterol LDL Cholesterol, Calc HDL Cholesterol Urine Color Yellow Urine Appearance Clear Urine pH 6.0 Ur Specific [place] <= 1.005 Urine Protein Negative Urine Glucose (UA) Negative Urine Ketones Negative Urine Blood Negative Urine Nitrite Negative Ur Leukocyte Esterase Negative 11/04/22 11/05/22 11/05/22 17:24 06:02 06:02 MCV 97.8 MCH 32.6 MCHC 33.3 RDW 12.8 Plt Count 208 MPV 10.1 Immature Gran % (Auto) 0.4 Neut % (Auto) 54.4 Lymph % (Auto) 30.7 Brooke % (Auto) 11.4 H Eos % (Auto) 2.5 Baso % (Auto) 0.6 Lymph # (Auto) 2.2 Brooke # (Auto) 0.8 Eos # (Auto) 0.2 Baso # (Auto) 0.0 Abs Immat Gran (auto) 0.03 Absolute Neuts (auto) 4.0 Absolute Nucleated RBC 0.000 Nucleated RBC % (auto) 0.0 PT INR Anion Gap 13 14 Estim Creat Clear Calc 112.8 89.8 Estimated GFR > 60 > 60 Random Glucose 87 94 Estimat Average Glucose Hemoglobin A1c % Calcium 9.4 9.4 Magnesium Total Bilirubin 0.5 Direct Bilirubin 0.1 AST 23 ALT 22 Alkaline Phosphatase 55 Troponin I High Sens Total Protein 6.6 Albumin 4.0 Triglycerides 195 Cholesterol 212 LDL Cholesterol, Calc 136 HDL Cholesterol 37 Urine Color Urine Appearance Urine pH Ur Specific [place] Urine Protein Urine Glucose (UA) Urine Ketones Urine Blood Urine Nitrite Ur Leukocyte Esterase Assessment and Plan (1) CVA (cerebrovascular accident): Status: Acute Plan 67-year-old male with history of paroxysmal atrial fibrillation anticoagulated with Eliquis, left bundle branch block s/p cardiac catheterization, history aortic stenosis s/p TAVR, obstructive sleep apnea compliant with CPAP, and rheumatoid arthritis to be observed for acute CVA. Subacute CVA No residual weakness Head ct with age indeterminate hypodensity in the right inferior cerebellar hemisphere MRI brain showing a few tiny chronic infarcts within the right cerebellar hemisphere and scattered chronic small vessel ischemic changes continue Eliquis 5 mg b.i.d. Initiate 81 mg ASA daily neurology consultation pending echocardiogram with bubble study pending PT/OT eval>o/p vetsibular rehab paroxysmal atrial fibrillation-rate controlled continue Eliquis 5 mg b.i.d. continue metoprolol for rate control JANNETTE continue CPAP at bedtime rheumatoid arthritis continue methotrexate DVT prophylaxis-on Eliquis Attending Dr. Larkin Full code Time Spent With Patient Time: Total time managing care of this patient today ____ minutes. Quality Stroke Does the patient have a stroke diagnosis?: Yes Reason for No Anti-thrombotic by Day Two: Drug treatment not indicated VTE Prior VTE?: No VTE Risk Level:: Medical - moderate - high VTE Device Contraindication: Treatment Not Indicated VTE Drug Contraindication: N/A - Med Ordered
[2022-11-05 11:17] VITALS: BP 129/67; PULSE 68; RESP 20; TEMP 36.2; O2SAT 96
--- NOTE | 2022-11-05 13:49 | MHC.CM.PN ---
LEVY 11/05/22, EMR REVIEWED, CM MET W/PT WHO REPORTS HE LIVES W/HIS DTR/HCP NOLVIA AND IS RETIRED, PT IS INDEPENDENT W/ALL CARE, USES A CPAP AND DENIES ANY OTHER DME OR HOME SERVICES. P.T. HAS RECOMMENDED OUTPT VESTIBULAR THERAPY AND PT WOULD LIKE CORE HERE AT [facility] HE LIVES NEARBY. PT VERIFIES BENEDICT CORBIN PCP, PT REPORTS COVID VACC X2 AND HCP IS DTR NOLVIA [place], NUMBER ON FILE, COPY REQUESTED. D/C PLAN: HOME W/OUTPT SERVICES W/DTR FOR TRANSPORT
[2022-11-05 16:00] VITALS: BP 111/52; PULSE 62; RESP 20; TEMP 36.1; O2SAT 96
--- NOTE | 2022-11-05 17:20 | PM.NEUROCN ---
History of Present Illness Data of Consult Service Date: 11/05/22 Primary Care Provider: Prateek Vo MD [facility] Reason for consult: Dizziness This is a 67-year-old male with history of paroxysmal atrial fibrillation 2yrs ago, anticoagulated with Eliquis, left bundle branch block s/p cardiac catheterization, history aortic stenosis s/p TAVR, obstructive sleep apnea compliant with CPAP, and rheumatoid arthritis presented to the emergency department for evaluation of lightheadedness.? Reports he had a single episode of lightheadedness that lasted for 1-2 days about 1-3 month ago but then resolved.? He had recurrence of symptoms about 4 days ago that have persisted off and on, described as a lightheadedness with some room spinning dizziness that occurs primarily with change of position and vertical head movements.? There is occasionally nausea and blurred vision.? He denies any symptoms currently.? Denies any focal weakness, paresthesias, diplopia, dysphagia, slurred speech, facial droop, near syncope, palpitations, shortness of breath, or chest pain.? No history of CVA.? Reports compliance with medications including Eliquis. Head CT showing small age-indeterminate hypodensity in right inferior cerebellar hemisphere, MRI shows a few tiny chronic righr cerebellar infarcts and microvascular white matter changes but no acute infarct. Review of Systems Review of Systems: Follow up CVA doing better today no c/o pain or weakness PMFSH Past Medical History Medical History CVA (cerebrovascular accident) LBBB (left bundle branch block) JANNETTE on CPAP PAF (paroxysmal atrial fibrillation) Rheumatoid arthritis, unspecified Family History Family History Mother No problems noted. Father No problems noted. Surgical History Surgical History History of cardiac cath Hx of cardiac cath Status post aortic valve replacement with bioprosthetic valve Social History Social History Household Members: Spouse Housing: House Do you presently have visiting nurse or other home services: No Patient Tobacco Use Status: Former Tobacco user Quit Date: 18 yrs ago service: No Current occupational status: retired Meds Allergies Allergy/AdvReac Type Severity Reaction Status Date / Time No Known Allergies Allergy Verified 07/04/21 09:58 [No Known Allergies*] Active Medications: Current Medications Acetaminophen (Acetaminophen 325 Mg Tablet) 650 mg PO Q6H PRN PRN Reason: Pain, Mild (Pain Scale 1-3) Apixaban (Apixaban 5 Mg Tablet) 5 mg PO BID [facility] Last Admin: 11/05/22 09:38 Dose: 5 mg Aspirin (Aspirin Enteric Coated 81 Mg Tablet.Dr) 81 mg PO DAILY [facility] Last Admin: 11/05/22 09:39 Dose: 81 mg Atorvastatin Calcium (Atorvastatin Calcium 40 Mg Tablet) 40 mg PO DAILY [facility] Last Admin: 11/05/22 09:38 Dose: 40 mg Celecoxib (Celecoxib 200 Mg Capsule) 200 mg PO BID [facility] Last Admin: 11/05/22 09:39 Dose: 200 mg Docusate Sodium (Docusate Sodium 100 Mg Capsule) 100 mg PO DAILY PRN PRN Reason: Constipation Folic Acid (Folic Acid 1 Mg Tablet) 1 mg PO DAILY [facility] Last Admin: 11/05/22 09:40 Dose: 1 mg Meclizine HCl (Meclizine Hcl 25 Mg Tablet) 25 mg PO Q6H PRN PRN Reason: Vertigo Metoprolol Tartrate (Metoprolol Tartrate 25 Mg Tablet) 25 mg PO BID [facility]; Protocol Last Admin: 11/05/22 09:40 Dose: 25 mg Multivitamins/Vitamin C (Multivitamin Tablet) 1 tab PO DAILY [facility] Last Admin: 11/05/22 09:39 Dose: 1 tab Ondansetron HCl (Ondansetron Hcl 4 Mg/2 Ml Vial) 4 mg IVPUSH Q8H PRN PRN Reason: Nausea and Vomiting Pharmacy Consult (Consult Rx Perform Med Rec) 1 each MISCELLANE ONCE PRN PRN Reason: Consult order Sodium Chloride (0.9 % Sodium Chloride Flush 3 Ml Syringe) [address] [facility] Last Admin: 11/05/22 09:40 Dose: 3 ml Home Medications Medication Instructions Recorded Confirmed Last Taken Type celecoxib 200 mg capsule 200 mg PO BID 07/11/20 11/04/22 11/04/22 History folic acid 1 mg tablet 1 mg PO DAILY 07/11/20 11/04/22 11/04/22 History methotrexate sodium 2.5 mg tablet 20 mg PO TU@0900 07/11/20 11/04/22 10/29/22 History multivitamin 1 tab PO DAILY 11/04/22 11/04/22 11/04/22 History Physical Exam Vital Signs: Vital Signs: Last Vital Signs Temp 97 F 11/05/22 16:00 Pulse 62 11/05/22 16:00 Resp 20 11/05/22 16:00 BP 111/52 L 11/05/22 16:00 Pulse Ox 96 11/05/22 16:00 O2 Del Method Room Air 11/05/22 16:00 BMI result Body Mass Index 46.3 Neuro: Other: Normal non focal exam Results Labs 11/05/22 06:02 11/05/22 06:02 Labs: Short CBC 11/05/22 Range/Units 06:02 WBC 7.3 (4.8-10.8) X10*3/uL Hgb 13.3 L (14.0-18.0) g/dl Hct 39.9 L (42.0-52.0) % Plt Count 208 (160-400) X10*3/uL BMP 11/04/22 11/05/22 17:24 06:02 Sodium 143 143 Potassium 5.0 4.7 Chloride 108 108 Carbon Dioxide 27 26 BUN 18 H 17 H Creatinine 0.78 0.98 Calcium 9.4 9.4 Liver Function 11/04/22 Range/Units 17:24 Total Bilirubin 0.5 (0.0-1.0) mg/dL Direct Bilirubin 0.1 (0.0-0.5) mg/dL AST 23 (5-37) U/L ALT 22 (0-40) U/L Alkaline Phosphatase 55 (39-117) U/L Albumin 4.0 (3.5-5.0) g/dL Assessment and Plan (1) CVA (cerebrovascular accident): Status: Acute No evidence of acute stroke. Minor chronic lacunes in right cerebellum. Dizziness is non speciifc and probably inner ear related Recom. Continue anticoagulation. Meclizine 25mg PRN. No need for vestibular therapy at this time as his Sx have resolved. Plan 67-year-old male with history of paroxysmal atrial fibrillation anticoagulated with Eliquis, left bundle branch block s/p cardiac catheterization, history aortic stenosis s/p TAVR, obstructive sleep apnea compliant with CPAP, and rheumatoid arthritis to be observed for acute CVA. Subacute CVA No residual weakness Head ct with age indeterminate hypodensity in the right inferior cerebellar hemisphere MRI brain showing a few tiny chronic infarcts within the right cerebellar hemisphere and scattered chronic small vessel ischemic changes continue Eliquis 5 mg b.i.d. Initiate 81 mg ASA daily neurology consultation pending echocardiogram with bubble study pending PT/OT eval>o/p vetsibular rehab paroxysmal atrial fibrillation-rate controlled continue Eliquis 5 mg b.i.d. continue metoprolol for rate control JANNETTE continue CPAP at bedtime rheumatoid arthritis continue methotrexate DVT prophylaxis-on Eliquis Attending Dr. Larkin Full code Time Spent With Patient Time: Total time managing care of this patient today ____ minutes. Procedures Date of Service Date of Service: 11/05/22
--- NOTE | 2022-11-05 18:37 | P.DS_ITS ---
DS: Providers Provider Date of Service: 11/05/22 Date of admission: 11/04/22 20:05 Primary care physician: Prateek Vo MD Consults: 11/04/22 20:07 Consult to Neurology Routine Consulting Provider: Matheus Thomas Reason for consultation: cva DS: Diagnosis Discharge Diagnosis (1) CVA (cerebrovascular accident): Status: Acute DS: Summary Hospital Course Hospital Course: HP as per admitting provider 67-year-old male with history of paroxysmal atrial fibrillation anticoagulated with Eliquis, left bundle branch block s/p cardiac catheterization, history aortic stenosis s/p TAVR, obstructive sleep apnea compliant with CPAP, and rheumatoid arthritis presented to the emergency department for evaluation of lightheadedness.? Reports he had a single episode of lightheadedness that lasted for several days about 1 month ago but then resolved.? He had recurrence of symptoms about 4 days ago that has persisted.? Describes this as a room spinning dizziness that occurs primarily with change of position and head movements.? There is occasionally nausea and vomiting with blurred vision.? He denies any symptoms currently.? Denies any focal weakness, paresthesias, diplopia, dysphagia, slurred speech, facial droop, near syncope, palpitations, shortness of breath, or chest pain.? No history of CVA.? Reports compliance with medications including Eliquis. On arrival, vital signs stable.? No leukocytosis.? No anemia.? Renal function normal, electrolyte levels normal.? Troponin within normal limits.? Urinalysis unremarkable.? Head CT showing small age-indeterminate hypodensity in right inferior cerebellar hemisphere, correlate with MR brain.? No evidence of acute intracranial hemorrhage or territorial infarct.? In the ED, given 1 L IV NS . Dizziness. Head ct with age indeterminate hypodensity in the right inferior cerebellar hemisphere MRI brain showing a few tiny chronic infarcts within the right cerebellar hemisphere and scattered chronic small vessel ischemic changes continue Eliquis 5 mg b.i.d. Initiate 81 mg ASA daily neurology seen and evaluated.No acute stroke PT/OT eval>o/p vetsibular rehab meclizine prn for dizziness paroxysmal atrial fibrillation-rate controlled continue Eliquis 5 mg b.i.d. continue metoprolol for rate control JANNETTE continue CPAP at bedtime rheumatoid arthritis continue methotrexate Time Spent with Patient Time attestation: Total time managing care of this patient today ____ minutes. Discharge coordination time: Greater than 30 minutes Quality: Safe Use of Opioids Does Pt have an Active Cancer Diagnosis on the Problem List?: No Quality: Stroke Does the patient have a stroke diagnosis?: No Physical Exam Vital Signs: Vital Signs: Last Vital Signs Temp 97 F 11/05/22 16:00 Pulse 62 11/05/22 16:00 Resp 20 11/05/22 16:00 BP 111/52 L 11/05/22 16:00 Pulse Ox 96 11/05/22 16:00 O2 Del Method Room Air 11/05/22 16:00 BMI result Body Mass Index 46.3 Appearing in no acute distress head is normocephalic atraumatic eyes pupils are PERRLA sclera is anicteric mouth throat mucous membranes are intact and moist neck is supple no lymphadenopathy, no JVD noted lung sounds are clear to auscultation heart regular rate rhythm, clear S1, S2 positive bowel sounds, abdomen is soft, nontender neuro patient is alert x3, no focal deficits DS: Data Data Completed and Pending Labs on day of discharge: Laboratory Results - last 24 hr 11/04/22 11/04/22 11/05/22 10:54 17:24 06:02 WBC 7.3 RBC 4.08 L Hgb 13.3 L Hct 39.9 L MCV 97.8 MCH 32.6 MCHC 33.3 RDW 12.8 Plt Count 208 MPV 10.1 Immature Gran % (Auto) 0.4 Neut % (Auto) 54.4 Lymph % (Auto) 30.7 [place] % (Auto) 11.4 H Eos % (Auto) 2.5 Baso % (Auto) 0.6 Lymph # (Auto) 2.2 [place] # (Auto) 0.8 Eos # (Auto) 0.2 Baso # (Auto) 0.0 Abs Immat Gran (auto) 0.03 Absolute Neuts (auto) 4.0 Absolute Nucleated RBC 0.000 Nucleated RBC % (auto) 0.0 Sodium Potassium Chloride Carbon Dioxide Anion Gap BUN Creatinine Estim Creat Clear Calc Estimated GFR Random Glucose Estimat Average Glucose 105 Hemoglobin A1c % 5.3 Calcium Total Bilirubin 0.5 Direct Bilirubin 0.1 AST 23 ALT 22 Alkaline Phosphatase 55 Total Protein 6.6 Albumin 4.0 Triglycerides 195 Cholesterol 212 LDL Cholesterol, Calc 136 HDL Cholesterol 37 11/05/22 06:02 WBC RBC Hgb Hct MCV MCH MCHC RDW Plt Count MPV Immature Gran % (Auto) Neut % (Auto) Lymph % (Auto) [place] % (Auto) Eos % (Auto) Baso % (Auto) Lymph # (Auto) [place] # (Auto) Eos # (Auto) Baso # (Auto) Abs Immat Gran (auto) Absolute Neuts (auto) Absolute Nucleated RBC Nucleated RBC % (auto) Sodium 143 Potassium 4.7 Chloride 108 Carbon Dioxide 26 Anion Gap 14 BUN 17 H Creatinine 0.98 Estim Creat Clear Calc 89.8 Estimated GFR > 60 Random Glucose 94 Estimat Average Glucose Hemoglobin A1c % Calcium 9.4 Total Bilirubin Direct Bilirubin AST ALT Alkaline Phosphatase Total Protein Albumin Triglycerides Cholesterol LDL Cholesterol, Calc HDL Cholesterol Discharge Plan Discharge Anticipated Discharge Date/Time: 11/05/22 18:31 Patient Disposition: Home, Self-Care Discharge Diagnosis: dizziness Referrals: [facility] [Other] - 1 Week (OUT PATIENT VESTIBULAR REHAB) Prateek Vo MD [Primary Care Provider] - 1 Week Discharge Medications: New meclizine 25 mg tablet 25 mg PO BID PRN (Reason: dizziness) Qty: 6 0RF Continued metoprolol tartrate 25 mg tablet 25 mg PO BID 90 Days Qty: 180 3RF Eliquis 5 mg tablet 5 mg PO BID Qty: 180 3RF multivitamin Tablet 1 tab PO DAILY folic acid 1 mg tablet 1 mg PO DAILY methotrexate sodium 2.5 mg tablet 20 mg PO TU@0900 celecoxib 200 mg capsule 200 mg PO BID Discharge Orders: Discharge Order (Routine); Ordered 11/05/22 Ordered By: Jodee Ochoa Diet: Advance to usual diet Activity on Discharge: As tolerated Stand Alone Forms: Patient Portal Discharge page Care Plan Goals: complete resolution of symptoms Health Concerns: Dizziness Plan of Treatment: Take all medications as prescribed follow up with primary care provider as needed Assessment: See discharge summary Discharge Date/Time: 11/05/22 18:49
== END 2022-11-05 18:49 | disposition home or self-care (01) ==
LOC: HO.ED 19:23 → HO.EDOVER 20:14 → HO.IMC 23:11
PROVIDERS: Student in an Organized Health Care Education/Training Program; Admitting Provider Physician Assistant; Emergency Provider Student in an Organized Health Care Education/Training Program; PCP Internal Medicine; Visit Provider Nurse Practitioner Acute Care
DX: R42 Dizziness and giddiness (principal); E87.5 Hyperkalemia; I48.0 Paroxysmal atrial fibrillation; Z95.3 Presence of xenogenic heart valve; Z79.01 Long term (current) use of anticoagulants; Z79.899 Other long term (current) drug therapy
CPT/HCPCS: 36415; 70450; 70551; 80048; 80061; 80076; 81003; 83036; 83735; 84484; 85025; 85027; 85610; 93005; 93306; 94660; 96360; 97162; 97166; 99222; 99285

== ENCOUNTER 2023-01-08 10:23 | Outpatient (AMB) | payer MEDICARE, SELFPAY ==
--- NOTE | 2023-01-08 10:27 | A.OFFPC_ITS ---
Vital Signs 01/08/23 10:28 Height 5 ft 4 in Weight 249 lb 4 oz BMI 42.8 BP 130/80 Blood Pressure Location Lt brachial Position Sitting Pulse 64 Pulse Source Pulse Oximeter Pulse Oximetry (%) 95 Oxygen Delivery Method Room Air Intake Visit Reasons: sore right pointer finger Intake Note: Patient is here today for sore right pointer finger Java [email or web address] Application Developer Required: No Digital Content Specialist: Not Required per policy Accompanied by: Self / Same As Patient Allergies No Known Allergies [No Known Allergies*] Allergy (Verified 01/08/23 10:28) Medication List - Last Reconciled 01/08/23 by Prateek Vo MD apixaban (Eliquis) 5 mg PO BID celecoxib 200 mg PO BID folic acid 1 mg PO DAILY methotrexate sodium 20 mg PO TU@0900 metoprolol tartrate 25 mg PO BID multivitamin 1 tab PO DAILY Tobacco use date assessed: 01/08/23 Fall risk assessment: No Falls in past year Last assessed Fall Risk: 01/08/23 Dental Screening Dental Screen Date: 01/08/23 Did you have a dental visit in the last 12 months?: No Did you have a dental problem in the last 6 months where you did not have access to dental care?: No Was dental information given to patient?: Patient has dentist HPI sore right pointer finger HPI Details injured right index finger PFSH Medical History (Updated 01/08/23 @ 10:58 by Prateek Vo MD) LBBB (left bundle branch block) JANNETTE on CPAP PAF (paroxysmal atrial fibrillation) PAF (paroxysmal atrial fibrillation) Rheumatoid arthritis, unspecified Surgical History History of cardiac cath Hx of cardiac cath Status post aortic valve replacement with bioprosthetic valve Family History (Updated 01/08/23 @ 10:27 by TYRELL Kern) Mother No problems noted. Father No problems noted. Social History (Updated 01/08/23 @ 10:32 by TYRELL Kern) Household Members: Spouse Housing: House Do you presently have visiting nurse or other home services: No Alcohol intake: current Alcohol intake frequency: a few times a week Patient Tobacco Use Status: Former Tobacco user Quit Date: 18 yrs ago e-Cigarette/Vaping Use: Never Used Second Hand Smoke Exposure: No service: No Current occupational status: retired Cognitive needs: No Hearing needs: No Vision needs: Yes (glasses) Questionnaire Thrive Questionnaire Date Thrive assessed: 11/26/22 INNA-7 AMB Questionnaire INNA-7 Date INNA - 7 assessed: 11/26/22 Source: Developed by Drs. Navin Gomez, Drea Lockwood, Renny Andrew and colleagues, with an educational kranthi from [employer]. Review of Systems Const Denies chills, Denies headache(s) and Denies weight loss ENT Denies headache(s) Card Denies chest pain, Denies syncope, Denies irregular heart rhythm and Denies dyspnea Resp Denies chest congestion, Denies cough and Denies dyspnea GI Denies abdominal pain, Denies change in stool character, Denies nausea and Denies vomiting Musc Denies deformity and Denies joint swelling Neuro Denies syncope and Denies headache(s) Physical exam (Primary Care) Vital Signs: Last Vital Signs Pulse 64 01/08/23 10:28 BP 130/80 01/08/23 10:28 Pulse Ox 95 01/08/23 10:28 Oxygen Delivery Method Room Air 01/08/23 10:28 BMI result Body Mass Index 42.8 Tobacco/Smoking Status: Tobacco use Status Tobacco use date assessed 01/08/23 01/08/23 10:33 Patient Tobacco Use Status Former Tobacco user 01/08/23 10:33 e-Cigarette/Vaping Use Never Used 01/08/23 10:33 Thrive Assessment: Date of Thrive Assessment Date Thrive assessed 11/26/22 01/08/23 10:33 Const General: cooperative, comfortable and no acute distress Resp Effort & Inspection: normal respiratory effort Auscultation: clear to auscultation bilaterally Percussion: percussion normal Cardio Jugular venous distension: no JVD Rate: regular rate Rhythm: regular rhythm Extrem Other: nl right hand Assessment and Plan Assessment & Plan (1) Contusion of right index finger without damage to nail, initial encounter: Code(s): S60.021A - Contusion of right index finger without damage to nail, initial encounter Plan: xr Orders: Orders XR hand RT 2V Today M79.643 - Pain in unspecified hand Coding Level of Care Code Est Pt Level 3 (52595) Diagnoses Contusion of right index finger without damage to nail, initial encounter S60.021A
[2023-01-08 10:28] VITALS: BP 130/80; PULSE 64; O2SAT 95; BMI 42.8
== END 2023-01-08 10:37 | disposition home or self-care (01) ==
PROVIDERS: PCP Internal Medicine; Visit Provider Internal Medicine
DX: S60.021A Contusion of right index finger without damage to nail, initial encounter (principal)
CPT/HCPCS: 99213

== ENCOUNTER 2023-01-08 10:45 | Outpatient (REF) | payer MEDICARE, SELFPAY ==
--- NOTE | ~2023-01-08 | XR_ITS ---
EXAMINATION: XR HAND, RIGHT CLINICAL INFORMATION: Pain COMPARISON: None available. TECHNIQUE: PA, lateral, and oblique views of the right hand. FINDINGS: Advanced degenerative changes of the wrist with complete loss of radiocarpal joint space and bony remodeling of the distal radius. 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 Patchy disuse osteopenia. Mineralization in the TFCC cartilage which can be seen in the setting of chondrocalcinosis. Loss of second and third metacarpophalangeal joint space. Mild to moderate degenerative changes of the second distal interphalangeal joint with degenerative spurring. 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 * Mineralization in the TFCC cartilage which can be seen in the setting of chondrocalcinosis. * Moderate degenerative changes of the hand.
== END 2023-01-08 10:46 | disposition home or self-care (01) ==
LOC: HO.XRAY 10:45
PROVIDERS: PCP Internal Medicine; Visit Provider Internal Medicine
DX: M79.641 Pain in right hand (principal)
CPT/HCPCS: 73120

== ENCOUNTER → 2023-07-08 10:44 | Outpatient (REF) | payer MEDICARE, SELFPAY ==
--- NOTE | 2023-07-08 10:47 | CA_ITS ---
Transthoracic Echocardiogram Patient (Last, First, Middle): Delfin White G Gender: Male Date of : 1955 Age: 68 Procedure Date: 07/08/2023 Procedure Type: Transthoracic Echocardiogram Location: OP Height: 162.56 cm Weight: 113.4 kg BSA: 2.15 m2 Heart Rate: bpm BP: 126 / 70 mmHg Airplane Navigator: TO Referring MD: Joe Hernandez MD Symptoms: Z95.3 - Presence of xenogenic heart valve Study Quality: Fair/Contrast ECG Rhythm: Sinus Conclusions: - The left ventricular systolic function is low normal. The calculated ejection fraction is 52% by biplane method. - A bioprosthetic aortic valve is present. The prosthetic aortic valve appears to be functioning normally. - There is severe mitral annular calcification. Findings Procedure Information Contrast agent, definity, is being given per protocol without apparent complications. Left Ventricle Normal left ventricular cavity size. There is mildly increased left ventricular wall thickness. The left ventricular systolic function is low normal. The calculated ejection fraction is 52% by biplane method. There is paradoxical septal motion consistent with a left bundle branch block. Evidence suggests grade I (mild) diastolic dysfunction. Right Ventricle Mildly increased right ventricular cavity size. There is low normal right ventricular systolic function. Atria The left atrium is moderately dilated. The right atrium is normal in size. Aortic Valve A bioprosthetic aortic valve is present. The prosthetic aortic valve appears to be functioning normally. Trivial para-valvular regurgitation. Mitral Valve There is severe mitral annular calcification. There is mild mitral valve regurgitation. There is mild mitral valve stenosis. Pulmonic Valve The pulmonic valve is likely normal. Tricuspid Valve There is mild tricuspid valve regurgitation. There is no evidence of pulmonary hypertension. Great Vessels The asc aorta is normal in size. Venous The inferior vena cava is normal in size and collapses greater than 50% with inspiration. Pericardium/Pleural There is no evidence of pericardial effusion. Prior Study Comparison No significant change compared to prior study dated: 11/05/2022. Measurements 2D Linear Measurements IVSd: 1.45 0.6-0.9/0.6-1.0 cm LVIDd: 5.35 3.9-5.3/4.2-5.9 cm LVIDd Index: 2.49 2.4-3.2/2.2-3.1 cm/m2 LVIDs: 3.94 2.0-3.6 cm LVPWd: 1.21 0.7-1.1 cm LA Diam: 4.10 2.7-3.8/3.0-4.0 cm LAIDs Index: 1.91 1.5-2.3 cm/m2 LV Mass: 375.22 67-162/88-224 g LV Mass Index: 174.52 43-95/49-115 g/m2 LVOT Diam: 2.10 3.0+(-)1.3 cm 2D Systolic Function EF 4C: 45.70 >55% EF 2C: 55.80 >55% EF BiP: 51.80 >55% Mitral Valve MV VTI: 0.56 MV Pk Garret: 1.64 MV Mn Garret: 1.04 MV Pk Grad: 11.00 MV Mn Grad: 5.00 MV Pk E: 1.41 MV PK A: 1.31 MV Decel Time: 350.00 E/A: 1.10 E'Lateral: 6.31 E'Medial: 3.70 E/E' Med: 38.10 E/E' Lat: 22.30 PHT: 103.00 MVA PHT: 2.14 MVA Continuity: 1.46 Decel [place]: 4.03 Aortic Valve AoV Pk Garret: 2.04 AoV Mn Garret: 1.39 AoV VTI: 0.54 AoV Pk Grad: 17.00 Aov Mn Grad: 9.00 SONY Cont.VTI: 1.53 LVOT LVOT Pk Garret: 0.88 LVOT Mn Garret: 0.69 LVOT VTI: 0.24 LVOT Pk Grad: 3.00 LVOT Mn Grad: 2.00 LVOT Diam: 2.10 LVOT Area: 3.46 Diastolic Function MV Pk E: 1.41 MV Pk A: 1.31 E/A: 1.10 E'Medial: 3.70 E/E' Med: 38.10 E' Laterial: 6.31 E/E' Lat: 22.30 Right Ventricle TAPSE (mm): 17.50 TVS' Garret: 9.90 Tricuspid Valve TR Pk Garret: 2.54 TR Pk Grad: 26.00 RA Press: 3.00 RVSP: 29.00 Great Vessels Aorta Ao Asc: 3.40 2.1-3.4 cm Updated in Other Vendor System with Status of Final Joe Hernandez MD electronically signed on 07/09/2023 12:17:10 PM with status of Final
== END ==
LOC: HO.CARD 10:44
PROVIDERS: PCP Internal Medicine; Visit Provider Internal Medicine
DX: Z95.3 Presence of xenogenic heart valve (principal)
CPT/HCPCS: 93306; Q9957

== ENCOUNTER → 2023-07-08 10:47 | Outpatient (BNV) | payer MEDICARE, SELFPAY | PROVIDERS: PCP Internal Medicine; Visit Provider Internal Medicine | DX: I34.81 Nonrheumatic mitral (valve) annulus calcification (principal); I34.0 Nonrheumatic mitral (valve) insufficiency | CPT/HCPCS: 93306 ==

== ENCOUNTER 2023-07-17 10:37 | Outpatient (AMB) | payer MEDICARE, OTHER, SELFPAY ==
--- NOTE | 2023-07-17 10:50 | A.OFFVIS_ITS ---
Intake Vital Signs 07/17/23 10:51 Height 5 ft 4 in Weight 257 lb 7.999 oz BMI 44.2 BP 120/78 Blood Pressure Location Lt brachial Position Sitting Pulse 60 Intake Visit Reasons: 1 year follow up after echo Intake Note: 1 year follow up Child Care Group Leader Required: No Accompanied by: Self / Same As Patient Allergies No Known Allergies [No Known Allergies*] Allergy (Verified 07/17/23 10:52) Medication List - Last Reconciled 07/17/23 by Joe Hernandez MD celecoxib 200 mg PO BID folic acid 1 mg PO DAILY methotrexate sodium 20 mg PO TU@0900 metoprolol tartrate 25 mg PO BID multivitamin 1 tab PO DAILY warfarin 5 mg PO DAILY HPI HPI Comments History of Present Illness Details Delfin returns for follow-up regarding atrial fibrillation as well as aortic valve replacement. Overall, he states he is feeling fine. No cardiac symptoms. [facility] Medical History (Updated 01/08/23 @ 10:58 by Prateek Vo MD) PAF (paroxysmal atrial fibrillation) JANNETTE on CPAP Rheumatoid arthritis, unspecified LBBB (left bundle branch block) PAF (paroxysmal atrial fibrillation) Surgical History Status post aortic valve replacement with bioprosthetic valve History of cardiac cath Hx of cardiac cath Family History Mother No problems noted. Father No problems noted. Social History Household Members: Spouse Housing: House Do you presently have visiting nurse or other home services: No Alcohol intake: current Alcohol intake frequency: a few times a week Patient Tobacco Use Status: Former Tobacco user Quit Date: 18 yrs ago e-Cigarette/Vaping Use: Never Used Second Hand Smoke Exposure: No service: No Current occupational status: retired Cognitive needs: No Hearing needs: No Vision needs: Yes (glasses) Review of Systems Const Denies weakness ENT Denies dizziness Card Denies chest pain, Denies chest pain with activity, Denies syncope, Denies rapid heart rate, Denies pedal edema, Denies edema, Denies leg edema, Denies lightheadedness, Denies palpitations, Denies dyspnea, Denies dyspnea on exertion and Denies orthopnea Resp Denies cough, Denies dyspnea and Denies dyspnea on exertion GI Denies hematochezia and Denies change in stool character Musc Denies abnormal gait, Denies muscle cramps, Denies muscle weakness, Denies numbness, Denies radiating pain into limb and Denies tingling Neuro Denies abnormal gait, Denies dizziness, Denies syncope, Denies numbness, Denies tingling and Denies weakness Endo Denies palpitations Physical Exam Vital Signs: Last Vital Signs Pulse 60 07/17/23 10:51 BP 120/78 07/17/23 10:51 BMI result Body Mass Index 44.2 Const General: comfortable and no acute distress Orientation/consciousness: patient oriented x3 HEENT Other: Unremarkable Head: Yes normal to inspection Neck Neck: Yes normal visual inspection Chest Chest palpation & inspection: normal inspection of the chest Resp Auscultation: clear to auscultation bilaterally Cardio Palpation: normal PMI Heart sounds: S1 normal heart sound present, S2 normal heart sound present, no gallops, Murmur heart sound present systolic II/ and at the right sternal border and no rubs GI Palpation (GI): Soft to palpation Back/Spine/Pelvis Other: unremarkable Skin General skin exam: no rashes or lesions noted Neuro General: patient oriented x3 Extrem General: Yes normal to inspection Psych Mental Status: mental status grossly normal Office Procedures EKG Details: EKG with sinus rhythm at 60/Min; left bundle-branch block pattern; borderline AL at 202 milliseconds. [id number], Complete Assessment & Plan Assessment & Plan (1) PAF (paroxysmal atrial fibrillation): Code(s): I48.0 - Paroxysmal atrial fibrillation Plan: Continue beta-blockers. Continue anticoagulation. No recent issues. In the past, he has undergone cardioversion. Sotalol was tried but that led to QT prolongation. EP evaluated him but he did not want ablation. (2) Status post aortic valve replacement with bioprosthetic valve: Code(s): Z95.3 - Presence of xenogenic heart valve Plan: Echocardiogram with normal prosthetic valve function. Usual infective endocarditis prophylaxis as needed. Preoperative catheterization with normal coronaries. (3) LBBB (left bundle branch block): Code(s): I44.7 - Left bundle-branch block, unspecified Plan: Chronic finding. (4) JANNETTE on CPAP: Code(s): G47.33 - Obstructive sleep apnea (adult) (pediatric); Z99.89 - Dependence on other enabling machines and devices Plan: Continue CPAP. Coding Level of Care Code Est Pt Level 4 (85822) Diagnoses PAF (paroxysmal atrial fibrillation) I48.0 Status post aortic valve replacement with bioprosthetic valve Z95.3 LBBB (left bundle branch block) I44.7 JANNETTE on CPAP G47.33; Z99.89 CPT Codes EKG - CPT: 82663-[id number], Complete ([id number])
[2023-07-17 10:51] VITALS: BP 120/78; PULSE 60; BMI 44.2
== END 2023-07-17 11:10 | disposition home or self-care (01) ==
PROVIDERS: Visit Provider Internal Medicine
DX: I48.0 Paroxysmal atrial fibrillation (principal); Z95.3 Presence of xenogenic heart valve; I44.7 Left bundle-branch block, unspecified; G47.33 Obstructive sleep apnea (adult) (pediatric); Z99.89 Dependence on other enabling machines and devices
CPT/HCPCS: 93010; 99214

== ENCOUNTER → 2023-07-17 10:37 | Outpatient (BNVA) | payer MEDICARE, OTHER, SELFPAY | PROVIDERS: Visit Provider Internal Medicine | DX: I48.0 Paroxysmal atrial fibrillation (principal); I44.7 Left bundle-branch block, unspecified; G47.33 Obstructive sleep apnea (adult) (pediatric); Z95.3 Presence of xenogenic heart valve; Z79.01 Long term (current) use of anticoagulants; Z79.899 Other long term (current) drug therapy; Z99.89 Dependence on other enabling machines and devices | CPT/HCPCS: 93005; 99212 ==

== ENCOUNTER 2024-05-08 00:13 | Emergency (ER) | payer MEDICARE, OTHER, SELFPAY ==
[2024-05-08] VITALS (10 sets, daily range): BP systolic 79–129; BP diastolic 44–79; PULSE 64–145; RESP 12–23; TEMP 36.6–36.9; O2SAT 97–98; BMI 44.2
--- NOTE | 2024-05-08 | ECG_ITS ---
Test Reason : TACHY Blood Pressure : / mmHG Vent. Rate : 144 BPM Atrial Rate : 000 BPM P-R Int : 000 ms QRS Dur : 142 ms QT Int : 348 ms P-R-T Axes : 000 -11 087 degrees QTc Int : 538 ms Possible atrial flutter with 2:1 conduction Left bundle branch block Abnormal ECG When compared with ECG of 04-NOV-2022 15:19, Possible atrial flutter has replaced Sinus rhythm Vent. rate has increased BY 83 BPM Referred By: Generic ED Physician Electronically Signed By:JOSELYN MERCER MD
--- NOTE | ~2024-05-08 | XR_ITS ---
EXAMINATION: XR CHEST CLINICAL INFORMATION: dyspnea COMPARISON: Chest radiograph 10/23/2018. TECHNIQUE: Frontal view of the chest was obtained. FINDINGS: Multiple and fractured median sternotomy wires. External pacer lead noted. No effusions or pneumothoraces. Normal pattern of pulmonary vasculature. No focal pulmonary consolidation noted. XR/XR chest 1V IMPRESSION: *No acute cardiopulmonary abnormalities visualized. Electronically signed by: Hitesh Kurtz MD 05/08/2024 01:52 AM KEREN
--- NOTE | 2024-05-08 00:20 | ED.ARRPALP ---
HPI - Arrhythmia/Palpitations General Chief Complaint: Arrhythmia/Palpitations Stated Complaint: 142 heart rate, light headed Time Seen by Provider: 05/08/24 00:18 Source: patient and old records reviewed Mode of arrival: ambulatory Limitations: no limitations History of Present Illness ED Provider: LETICIA MORRISON narrative: 68 yo male with PMH of aortic valve replacement bio, PAF on coumadin prior cardioversion x 2 on metoprolol as well took both doses today, LBBB, JANNETTE on CPAP, HTN, RA here with c/o feeling weird this AM when he woke up he was sweaty no CP/SOB he took his AM medications felt fine throughout the day. 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 No recent illness, no change in medications, he has mildly dizzy. He took all of his medications. No CP/SOB, edema MD complaint: palpitations Onset (ago): hour(s) (few) Duration: intermittent Severity: moderate Context: occurred during rest Arrhythmia history: atrial fibrillation Associated symptoms: shortness of breath Treatments prior to arrival: beta-breanna Related Data Home Medications ?Medication ?Instructions ?Recorded ?Confirmed celecoxib 200 mg capsule 200 mg PO BID 07/11/20 07/17/23 folic acid 1 mg tablet 1 mg PO DAILY 07/11/20 07/17/23 methotrexate sodium 2.5 mg tablet 20 mg PO TU@0900 07/11/20 07/17/23 multivitamin 1 tab PO DAILY 11/04/22 07/17/23 Previous Rx's ?Medication ?Instructions ?Recorded metoprolol tartrate 25 mg tablet 25 mg PO BID #180 tabs 12/02/23 ketoconazole 2 % topical foam 1 appl topical BID 4 weeks #50 02/05/24 grams ketoconazole 2 % topical cream 1 appl topical BID #30 grams 02/09/24 warfarin 5 mg tablet 5 mg PO DAILY #60 tabs 02/12/24 Allergies Allergy/AdvReac Type Severity Reaction Status Date / Time No Known Allergies Allergy Verified 05/08/24 00:20 [No Known Allergies*] Review of Systems Review of Systems: Constitutional : No Fever, No Chills, No Fatigue ENT/Mouth : No sore throat, No Rhinorrhea Eyes: No Eye Pain, No Swelling, No Redness Cardiovascular : No Chest Pain, No SOB, No Dyspnea on Exertion, pos palpitations Respiratory : No Cough, No Sputum Gastrointestinal : No Nausea, No Vomiting, No Diarrhea, No abdominal Pain Genitourinary : No Dysuria, No Urinary Frequency, No Hematuria, Musculoskeletal : No joint pain, No Myalgias, No Joint Swelling Skin : No Skin Lesions, No rash Neuro : No Weakness, No Numbness, No Dizziness, no Headache Psych : No Anxiety/Panic, No Depression All other systems reviewed and are negative [facility] Past Medical History Attestation statement: The following information was validated with the patient. Source: old records reviewed Medical History PAF (paroxysmal atrial fibrillation) JANNETTE on CPAP Rheumatoid arthritis, unspecified LBBB (left bundle branch block) PAF (paroxysmal atrial fibrillation) Surgical History Status post aortic valve replacement with bioprosthetic valve History of cardiac cath Hx of cardiac cath Family History Family History Mother No problems noted. Father No problems noted. Social History Social History Household Members: Spouse Housing: House Do you presently have visiting nurse or other home services: No Alcohol intake: current Alcohol intake frequency: a few times a week Patient Tobacco Use Status: Former Tobacco user Smoked in Last 30 Days: No e-Cigarette/Vaping Use: Never Used Second Hand Smoke Exposure: No Use of substances other than those prescribed or required for medical reasons: No Advance Directives: No Advance Directives Information Provided: Yes Do you have a plan to hurt others: No Plan service: No Current occupational status: retired Cognitive needs: No Hearing needs: No Vision needs: Yes (glasses) Physical Exam Vital Signs: Vital Signs: Last Vital Signs Temp 98.2 F 05/08/24 04:08 Pulse 68 05/08/24 04:08 Resp 17 05/08/24 04:08 BP 117/71 05/08/24 04:08 Pulse Ox 97 05/08/24 04:08 O2 Del Method Room Air 05/08/24 04:08 BMI result Body Mass Index 44.2 Appearance: Alert. Oriented X3. No acute distress. Eyes: Pupils equal, round and reactive to light. ENT: Pharynx normal. Neck: Normal inspection. Neck supple. CVS: irregular tachycardic heart rate and rhythm. Pulses normal. Respiratory: No respiratory distress. Breath sounds normal. Abdomen: Soft and non-tender. Skin: Skin warm and dry. Normal skin color. Normal skin turgor. Extremities: No lower extremity edema. Neuro: Oriented X 3. No motor deficit. No sensory deficit. Course Course Course Narrative: no response to dilt BP dropping asymptomatic IVF ordered will try esmolol drip Reevaluation(s) Reevaluation #1: patient aware of risks of cardioversion he wants to proceed - stroke, aspiration, arrest Reevaluation #2: feels much better he is eager to go home - stable for DC Medications Administered Generic Name Dose Route Start Last Admin Trade Name Freq PRN Reason Stop Dose Admin Esmolol HCl 2,500 mg in 250 mls @ 0 mls/hr 05/08/24 01:00 05/08/24 01:37 Brevibloc/Nacl IVCONT 0 mcg/kg/min .Q0M BJ 0 mls/hr Titration Protocol Per Protocol Discontinued Medications Generic Name Dose Route Start Last Admin Trade Name Freq PRN Reason Stop Dose Admin Diltiazem HCl 10 mg 05/08/24 00:20 05/08/24 00:32 Diltiazem Hcl 50 Mg/10 Ml Vial IVPUSH 05/08/24 00:21 10 mg STAT STA Administration Enoxaparin Sodium 105 mg 05/08/24 00:55 05/08/24 01:08 Enoxaparin Sodium 120 Mg/0.8 Ml Syringe SUBCUT 05/08/24 00:56 105 mg ONCE ONE Administration Etomidate 10 mg 05/08/24 01:35 05/08/24 01:39 Etomidate 20 Mg/10 Ml Vial IVPUSH 05/08/24 01:36 10 mg ONCE ONE Administration Sodium Chloride 1,000 mls @ 999 mls/hr 05/08/24 00:27 05/08/24 01:30 Ns IV 05/08/24 01:27 Infused .Q1H1M ONE Infusion Medical Decision Making Medical Decision Making [facility] Narrative: 68 yo male with PMH of aortic valve replacement bio, PAF on coumadin prior cardioversion x 2 on metoprolol as well took both doses today, LBBB, JANNETTE on CPAP, HTN, RA here with c/o afib at this time no signs of CHF will dose x 1 with dilt but BP soft at baseline his normal BPs are 90s/60s. I have ordered fluid along with dilt. He has been cardioverted before depending INR he might need cardioversion if INR subtherapeutic plan for lovenox and then cardioversion if he becomes unstable Differential Diagnosis Differential Diagnoses: The differential diagnosis associated with the presentation includes aflutter, afib Admission/Observation Consideration of admission/observation: Escalation of care including admission/observation considered patient very eager to go home pending repeat trop though I suspect it will be high due to cardioversion he has no symptoms and has good BP. BNP elevated but no signs of CHF - suspect due to afib and rate trop 62 but likely due to demand repeat trop flat at this time will DC Home given dose of lovenox in ED will instruct him to get INR level on Friday Lab Data MDM Lab Attestation statement: I reviewed the patient's lab results. 05/08/24 00:26 05/08/24 00:26 Labs: Lab Results 05/08/24 05/08/24 Range/Units 00:26 05:34 WBC 9.6 (4.8-10.8) X10*3/uL RBC 4.16 L (4.60-5.80) X10*6/uL Hgb 13.7 L (14.0-18.0) g/dl Hct 40.6 L (42.0-52.0) % MCV 97.6 (80.0-98.0) fL MCH 32.9 (27.0-33.0) pg MCHC 33.7 (31.0-36.0) g/dl RDW 12.4 (11.0-16.0) % Plt Count 269 D (160-400) X10*3/uL MPV 10.0 (9.4-12.4) fL Immature Gran % (Auto) 0.1 (0.0-0.4) % Neut % (Auto) 52.6 (45-73) % Lymph % (Auto) 36.2 (20-40) % [place] % (Auto) 9.3 (2-11) % Eos % (Auto) 1.5 (0-4) % Baso % (Auto) 0.3 (0-2) % Lymph # (Auto) 3.5 (1.2-4.9) X10*3/uL [place] # (Auto) 0.9 (0.1-1.2) X10*3/uL Eos # (Auto) 0.1 (0.0-0.4) X10*3/uL Baso # (Auto) 0.0 (0.0-0.2) X10*3/uL Abs Immat Gran (auto) 0.01 (0.00-0.03) X10*3/uL Absolute Neuts (auto) 5.0 (2.0-8.3) x10*3/uL Absolute Nucleated RBC 0.000 (0.0-0.012) X10*3/uL Nucleated RBC % (auto) 0.0 (0.0-0.2) /100WBC PT 18.4 H (10.9-12.4) SEC INR 1.6 H (0.9-1.1) Sodium 141 (135-145) mmol/L Potassium 4.1 (3.3-5.1) mmol/L Chloride 107 (96-108) mmol/L Carbon Dioxide 27 (22-29) mmol/L Anion Gap 11 L (12-20) BUN 26 H (9-16) mg/dL Creatinine 1.23 (0.5-1.4) mg/dL Estim Creat Clear Calc 68.7 Estimated GFR 59 Random Glucose 101 (60-115) mg/dL Calcium 9.2 (8.4-10.2) mg/dL Magnesium 2.1 (1.6-2.6) mg/dL Total Bilirubin 0.4 (0.0-1.0) mg/dL Direct Bilirubin 0.1 (0.0-0.5) mg/dL AST 27 (5-37) U/L ALT 24 (0-40) U/L Alkaline Phosphatase 75 (39-117) U/L Troponin I High Sens 62.8 H D 57.2 H (<3.5-35.0) ng/L B-Natriuretic Peptide 1117 H (<100) pg/mL Total Protein 7.0 (6.5-8.0) g/dL Albumin 4.0 (3.5-5.0) g/dL Independent Interpretation I performed an independent interpretation of an: EKG and Plain X-Ray Interpretation: Rate: 144 Rhythm: regular wide complex [place]: left Normal P waves. Normal ZENON. LBBB ST T wave : no MATHEW, normal qTC: 538 prior studies: no acute ischemia The study has been interpreted contemporaneously by me. EKG #2 Rate: 80 Rhythm: NSR [place]: left Normal P waves. Normal ZENON. LBBB ST T wave : inverted t waves I and aVL, noSTE qTC:445 prior studies: at baseline The study has been interpreted contemporaneously by me. . Radiology Impression Discussion of test interpretation with radiology: I have reviewed the radiologist's reading. External Record Review External record reviewed: Outpatient record Procedures Procedure Narrative Procedure Narrative: cardioverson 200J AP pads, all supports in place, consent in place, BP at baseline after procedure, tolerated well converted to NSR after one attempt Procedural Sedation Indication: other (cardioversion) ASA Class: II Mallampati Class: III Preparation: automobile rental representative applied, pulse oximeter, capnometry used, supplemental O2 applied, reversal agents at bedside, suction/airway equipment at bedside and IV secured IV Etomidate dose (mg): 10 Patient Tolerated Procedure: well and no complications Complications: none Interventions: airway repositioned Discharge Plan Discharge Clinical Impression: Atrial fibrillation Patient Disposition: Home, Self-Care Instructions: A-fib (Atrial Fibrillation) (ED), Cardioversion (DC), Procedural Sedation (ED) Additional Instructions: you were cardioverted - continue usual medications this AM. monitor for any chest pain or trouble breathing/dizzy your INR was 1.6 but you were given a shot of lovenox - you need to talk to your doctor about getting repeat INR (coumadin level) on Friday monitor for any bleeding, weakness, numbness, or any other concerns rest and stay hydrated Prescriptions: No Action metoprolol tartrate 25 mg tablet 25 mg PO BID Qty: 180 3RF ketoconazole 2 % foam 1 appl topical BID 28 Days Qty: 50 3RF ketoconazole 2 % cream 1 appl topical BID Qty: 30 0RF warfarin 5 mg tablet 5 mg PO DAILY Qty: 60 2RF multivitamin Tablet 1 tab PO DAILY folic acid 1 mg tablet 1 mg PO DAILY methotrexate sodium 2.5 mg tablet 20 mg PO TU@0900 celecoxib 200 mg capsule 200 mg PO BID Print Language: Taiwanese
[2024-05-08] MEDS: 0.9 % Sodium Chloride 1,000 ML 999 ML IV (00:28)
[2024-05-08 00:30] LABS: MANUAL DIFF FLAG NO
[2024-05-08 00:32] LABS: Basophils Percent Auto 0.3 % (0-2); Eosinophils Absolute Auto 0.1 X10*3/uL (0.0-0.4); Eosinophils Percent Auto 1.5 % (0-4); Hematocrit 40.6 % (42.0-52.0); Hemoglobin 13.7 g/dl (14.0-18.0); Imm Gran Abs Auto 0.01 X10*3/uL (0.00-0.03); Imm Gran Pct Auto 0.1 % (0.0-0.4); Lymphocytes Absolute Auto 3.5 X10*3/uL (1.2-4.9); Lymphocytes Percent Auto 36.2 % (20-40); Mean Corpuscular HGB Conc 33.7 g/dl (31.0-36.0); Mean Corpuscular Hemoglobin 32.9 pg (27.0-33.0); Mean Corpuscular Volume 97.6 fL (80.0-98.0); Monocytes Absolute Auto 0.9 X10*3/uL (0.1-1.2); Monocytes Percent Auto 9.3 % (2-11); Neutrophils Percent Auto 52.6 % (45-73); Platelet Count 269 X10*3/uL (160-400); Red Blood Count 4.16 X10*6/uL (4.60-5.80); Red Cell Distribution Width 12.4 % (11.0-16.0); White Blood Count 9.6 X10*3/uL (4.8-10.8)
[2024-05-08] MEDS: dilTIAZem HCL 50 MG/10 ML VIAL 10 MG IVPUSH (00:32)
[2024-05-08 00:40] LABS: INTERNATIONAL NORM RATIO 1.6 (0.9-1.1); Prothrombin Time 18.4 SEC (10.9-12.4)
[2024-05-08 00:53] LABS: Alanine Aminotransferase 24 U/L (0-40); Alkaline Phosphatase 75 U/L (39-117); Anion Gap 11 (12-20); Aspartate Amino Transferase 27 U/L (5-37); Bilirubin Direct 0.1 mg/dL (0.0-0.5); Bilirubin Total 0.4 mg/dL (0.0-1.0); Blood Urea Nitrogen 26 mg/dL (9-16); Calcium 9.2 mg/dL (8.4-10.2); Carbon Dioxide 27 mmol/L (22-29); Chloride 107 mmol/L (96-108); Creatinine Clr Calc Pharmacy 68.7; Estimated Glomerular Filt Rate 59; Glucose Random 101 mg/dL (60-115); Magnesium 2.1 mg/dL (1.6-2.6); Potassium 4.1 mmol/L (3.3-5.1); Sodium 141 mmol/L (135-145)
[2024-05-08 00:55] LABS: B Type Natriuretic Peptide 1117 pg/mL (<100)
[2024-05-08 00:56] LABS: Troponin-I High Sensitivity 62.8 ng/L (<3.5-35.0)
[2024-05-08] MEDS: Esmolol HCl/NaCl Iso 2,500 MG/250 ML IV.SOLN 35.07 MG IVCONT (01:07)
[2024-05-08] MEDS: Enoxaparin Sodium 120 MG/0.8 ML SYRINGE 105 MG SUBCUT (01:08)
--- NOTE | 2024-05-08 01:38 | PC.NURSE ---
Esmolol stopped per provider plan of care ongoing.
[2024-05-08] MEDS: Etomidate 20 MG/10 ML VIAL 10 MG IVPUSH (01:39)
--- NOTE | 2024-05-08 01:47 | ECG_ITS ---
Test Reason : CARDIOVERSION Blood Pressure : / mmHG Vent. Rate : 072 BPM Atrial Rate : 072 BPM P-R Int : 202 ms QRS Dur : 154 ms QT Int : 456 ms P-R-T Axes : 036 -18 065 degrees QTc Int : 499 ms Normal sinus rhythm Left bundle branch block Abnormal ECG When compared with ECG of 08-MAY-2024 00:18, Sinus rhythm has replaced atrial flutter Vent. rate has decreased BY 72 BPM Referred By: Andrea Villatoro Electronically Signed By:JOSELYN MERCER MD
[2024-05-08 05:57] LABS: Troponin-I High Sensitivity 57.2 ng/L (<3.5-35.0)
== END 2024-05-08 06:33 | disposition home or self-care (01) ==
PROVIDERS: Emergency Provider Emergency Medicine; PCP Internal Medicine
DX: I48.91 Unspecified atrial fibrillation (principal); R00.2 Palpitations; I44.7 Left bundle-branch block, unspecified; G47.33 Obstructive sleep apnea (adult) (pediatric); Z87.891 Personal history of nicotine dependence; Z95.2 Presence of prosthetic heart valve
CPT/HCPCS: 36415; 71045; 80048; 80076; 83735; 83880; 84484; 85025; 85610; 92960; 93005; 96361; 96372; 96374; 96375; 99285; J1650; J1805

== ENCOUNTER → 2024-05-08 00:18 | Outpatient (BNV) | payer MEDICARE, OTHER, SELFPAY | PROVIDERS: Emergency Provider Emergency Medicine; PCP Internal Medicine; Visit Provider Internal Medicine Cardiovascular Disease | DX: R00.0 Tachycardia, unspecified (principal); R94.31 Abnormal electrocardiogram [ECG] [EKG] | CPT/HCPCS: 93010 ==

== ENCOUNTER 2024-05-11 13:39 | Outpatient (AMB) | payer MEDICARE, OTHER, SELFPAY ==
--- NOTE | 2024-05-11 13:40 | A.OFFVIS_ITS ---
Vital Signs 05/11/24 13:41 Height 5 ft 4 in Weight 254 lb 6.615 oz BMI 43.7 BP 126/68 Blood Pressure Location Lt brachial Position Sitting Pulse 57 Pulse Source Pulse Oximeter Intake Visit Reasons: ED follow up/05-08/heart rate/dizziness Shop Superintendent Required: No Accompanied by: Self / Same As Patient Allergies No Known Allergies [No Known Allergies*] Allergy (Verified 05/08/24 00:20) Medication List - Last Reconciled 05/11/24 by Joe Hernandez MD celecoxib 200 mg PO BID ketoconazole 2% 1 appl topical BID 4 weeks ketoconazole 2% 1 appl topical BID methotrexate sodium 20 mg PO TU@0900 metoprolol tartrate 25 mg PO BID multivitamin 1 tab PO DAILY warfarin 5 mg PO DAILY HPI Comments Details: Delfin returns for follow-up regarding atrial fibrillation as well as aortic valve replacement. Recently, he came to the emergency room with complaints of palpitations. Sudden onset and he was found to be in atrial flutter with rapid rate in the 140s. No recent illnesses or other clear-cut provoking factors. It seems that he was hypotensive into the 70s/80s during that time. Rhythm was atrial flutter with rapid rate. Subsequently, underwent cardioversion at 200 joules and converted back to normal sinus rhythm. Now, he is back to his normal self. Otherwise, feels okay. [facility]LY [facility], [facility] Medical History PAF (paroxysmal atrial fibrillation) JANNETTE on CPAP Rheumatoid arthritis, unspecified LBBB (left bundle branch block) PAF (paroxysmal atrial fibrillation) Surgical History Status post aortic valve replacement with bioprosthetic valve History of cardiac cath Hx of cardiac cath Family History Mother No problems noted. Father No problems noted. Social History Household Members: Spouse Housing: House Do you presently have visiting nurse or other home services: No Alcohol intake: current Alcohol intake frequency: a few times a week Patient Tobacco Use Status: Former Tobacco user e-Cigarette/Vaping Use: Never Used Second Hand Smoke Exposure: No service: No Current occupational status: retired Cognitive needs: No Hearing needs: No Vision needs: Yes (glasses) Review of Systems Const Denies chills, Denies fatigue, Denies fever(s), Denies weight gain and Denies weight loss ENT Denies dizziness Card Denies chest pain, Denies leg edema, Denies lightheadedness, Denies palpitations, Denies dyspnea on exertion, Denies orthopnea and Denies other Resp Denies cough and Denies dyspnea on exertion GI Denies hematochezia and Denies change in stool character Musc Denies abnormal gait, Denies muscle weakness, Denies numbness, Denies radiating pain into limb and Denies tingling Neuro Denies abnormal gait, Denies dizziness, Denies numbness and Denies tingling Endo Denies fatigue and Denies palpitations Physical Exam Vital Signs: Last Vital Signs Pulse 57 05/11/24 13:41 BP 126/68 05/11/24 13:41 BMI result Body Mass Index 43.7 Const General: comfortable and no acute distress Orientation/consciousness: patient oriented x3 HEENT Other: Unremarkable Head: Yes normal to inspection Neck Neck: Yes normal visual inspection Chest Chest palpation & inspection: normal inspection of the chest Resp Auscultation: clear to auscultation bilaterally Cardio Palpation: normal PMI Heart sounds: S1 normal heart sound present, S2 normal heart sound present, no gallops, Murmur heart sound present systolic I/ and at the right sternal border and no rubs GI Palpation (GI): Soft to palpation Back/Spine/Pelvis Other: unremarkable Skin General skin exam: no rashes or lesions noted Neuro General: patient oriented x3 Extrem General: Yes normal to inspection Psych Mental Status: mental status grossly normal Assessment & Plan Assessment & Plan (1) Atrial flutter with rapid ventricular response: Code(s): I48.92 - Unspecified atrial flutter Category: Medical Plan: In the EKG from 08 of May, atrial flutter with rapid rate with a left bundle morphology. Rate of 144/Min. Post cardioversion in the emergency room, back in sinus rhythm in 70s. Has left bundle-branch block. He remains on beta-blockers. Not much room to increase it as he runs lowish blood pressures. Continue anticoagulation without changes. He has undergone prior cardioversions do but not in the last few years. He has also tried sotalol few years back but that led to QT prolongation. He has had EP evaluation many years ago but nothing recently. No prior ablations. We will refer him back to EP for consideration of ablation. In the last echocardiogram from June 2023, moderately dilated left atrium. LVEF 52%. (2) PAF (paroxysmal atrial fibrillation): Code(s): I48.0 - Paroxysmal atrial fibrillation Category: Medical Plan: Plan as above. (3) Status post aortic valve replacement with bioprosthetic valve: Code(s): Z95.3 - Presence of xenogenic heart valve Category: Surgical Plan: Echocardiogram with normal prosthetic valve function. Usual infective endocarditis prophylaxis as needed. Preoperative catheterization with normal coronaries. (4) LBBB (left bundle branch block): Code(s): I44.7 - Left bundle-branch block, unspecified Category: Medical Plan: Chronic finding. (5) JANNETTE on CPAP: Code(s): G47.33 - Obstructive sleep apnea (adult) (pediatric); Z99.89 - Dependence on other enabling machines and devices Category: Medical Plan: Continue CPAP. Orders: Referrals Cardiac Electrophysiology Referral I48.92 - Unspecified atrial flutter Coding Level of Care Code Est Pt Level 4 (51571) Diagnoses Atrial flutter with rapid ventricular response I48.92 PAF (paroxysmal atrial fibrillation) I48.0 Status post aortic valve replacement with bioprosthetic valve Z95.3 LBBB (left bundle branch block) I44.7 JANNETTE on CPAP G47.33; Z99.89
[2024-05-11 13:41] VITALS: BP 126/68; PULSE 57; BMI 43.7
== END 2024-05-11 14:23 | disposition home or self-care (01) ==
PROVIDERS: PCP Internal Medicine; Visit Provider Internal Medicine
DX: I48.92 Unspecified atrial flutter (principal); I48.0 Paroxysmal atrial fibrillation; Z95.3 Presence of xenogenic heart valve; I44.7 Left bundle-branch block, unspecified; G47.33 Obstructive sleep apnea (adult) (pediatric); Z99.89 Dependence on other enabling machines and devices
CPT/HCPCS: 99214

== ENCOUNTER → 2024-05-11 13:39 | Outpatient (BNVA) | payer MEDICARE, OTHER, SELFPAY | PROVIDERS: PCP Internal Medicine; Visit Provider Internal Medicine | DX: I48.92 Unspecified atrial flutter (principal); I48.0 Paroxysmal atrial fibrillation; I44.7 Left bundle-branch block, unspecified; G47.33 Obstructive sleep apnea (adult) (pediatric); Z95.3 Presence of xenogenic heart valve; Z99.89 Dependence on other enabling machines and devices | CPT/HCPCS: 99212 ==

== ENCOUNTER 2024-07-20 10:41 | Outpatient (AMB) | payer MEDICARE, OTHER, SELFPAY ==
[2024-07-20 10:47] VITALS: BP 120/60; PULSE 72; BMI 42.8
--- NOTE | 2024-07-20 10:47 | MHC.OFFVIS ---
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 Recently, he came to the emergency room with complaints of palpitations. Sudden onset and he was found to be in atrial flutter with rapid rate in the 140s. No recent illnesses or other clear-cut provoking factors. It seems that he was hypotensive into the 70s/80s during that time. Rhythm was atrial flutter with rapid rate. Subsequently, underwent cardioversion at 200 joules and converted back to normal sinus rhythm. Now he is back to his normal self. He was sent to EP to discuss ablation but it seems that he did not want anything done. He still stays the same. He states the episodes are very infrequent and hence he would not want anything done. [facility] Medical History PAF (paroxysmal atrial fibrillation) JANNETTE on CPAP Rheumatoid arthritis, unspecified LBBB (left bundle branch block) PAF (paroxysmal atrial fibrillation) Surgical History Status post aortic valve replacement with bioprosthetic valve History of cardiac cath Hx of cardiac cath Family History Mother No problems noted. Father No problems noted. Social History Household Members: Spouse Housing: House Do you presently have visiting nurse or other home services: No Alcohol intake: current Alcohol intake frequency: a few times a week Patient Tobacco Use Status: Former Tobacco user e-Cigarette/Vaping Use: Never Used Second Hand Smoke Exposure: No service: No Current occupational status: retired Cognitive needs: No Hearing needs: No Vision needs: Yes (glasses) Review of Systems Const Denies chills, Denies fatigue, Denies fever(s), Denies weight gain and Denies weight loss ENT Denies dizziness Card Denies chest pain, Denies leg edema, Denies lightheadedness, Denies palpitations, Denies dyspnea on exertion, Denies orthopnea and Denies other Resp Denies cough and Denies dyspnea on exertion GI Denies hematochezia and Denies change in stool character Musc Denies abnormal gait, Denies muscle weakness, Denies numbness, Denies radiating pain into limb and Denies tingling Neuro Denies abnormal gait, Denies dizziness, Denies numbness and Denies tingling Endo Denies fatigue and Denies palpitations Physical Exam Vital Signs: Last Vital Signs Pulse 72 07/20/24 10:47 BP 120/60 07/20/24 10:47 BMI result Body Mass Index 42.8 Const General: comfortable and no acute distress Orientation/consciousness: patient oriented x3 HEENT Other: Unremarkable Head: Yes normal to inspection Neck Neck: Yes normal visual inspection Chest Chest palpation & inspection: normal inspection of the chest Resp Auscultation: clear to auscultation bilaterally Cardio Palpation: normal PMI Heart sounds: S1 normal heart sound present, S2 normal heart sound present, no gallops, Murmur heart sound present systolic II/ and at the right sternal border and no rubs GI Palpation (GI): Soft to palpation Back/Spine/Pelvis Other: unremarkable Skin General skin exam: no rashes or lesions noted Neuro General: patient oriented x3 Extrem General: Yes normal to inspection Psych Mental Status: mental status grossly normal Assessment & Plan Assessment & Plan (1) Atrial flutter with rapid ventricular response: Code(s): I48.92 - Unspecified atrial flutter Category: Medical Plan: In the EKG from Apr, atrial flutter with rapid rate with a left bundle morphology. Rate of 144/Min. Post cardioversion in the emergency room, back in sinus rhythm in 70s. Has left bundle-branch block. He remains only on a small dose of beta-blockers due to lowish blood pressures. Otherwise, continue anticoagulation without changes. Prior to this, cardioversion was many years ago. Also tried sotalol but that led to QT prolongation. Has seen EP but refusing ablation. He wants to get ablation only if it is very frequent. Discussed about this today. Emergency precautions as necessary. In the last echocardiogram from June 2023, moderately dilated left atrium. LVEF 52%. (2) PAF (paroxysmal atrial fibrillation): Code(s): I48.0 - Paroxysmal atrial fibrillation Category: Medical Plan: Plan as above. (3) Status post aortic valve replacement with bioprosthetic valve: Code(s): Z95.3 - Presence of xenogenic heart valve Category: Surgical Plan: Echocardiogram with normal prosthetic valve function. Usual infective endocarditis prophylaxis as needed. Preoperative catheterization with normal coronaries. (4) LBBB (left bundle branch block): Code(s): I44.7 - Left bundle-branch block, unspecified Category: Medical Plan: Chronic finding. (5) JANNETTE on CPAP: Code(s): G47.33 - Obstructive sleep apnea (adult) (pediatric); Z99.89 - Dependence on other enabling machines and devices Category: Medical Plan: Continue CPAP. Orders: Orders CA echo transthoracic complete 1 Year Z95.3 - Presence of xenogenic heart valve ECG 7 day holter monitor 1 Year I48.92 - Unspecified atrial flutter Coding Level of Care Code Est Pt Level 4 (25004) Diagnoses Atrial flutter with rapid ventricular response I48.92 PAF (paroxysmal atrial fibrillation) I48.0 Status post aortic valve replacement with bioprosthetic valve Z95.3 LBBB (left bundle branch block) I44.7 JANNETTE on CPAP G47.33; Z99.89
--- OUTSIDE RECORDS SUMMARY | 2024-07-20 11:34 | XMS_ITS | Clinical Summary ---
Author Organization [facility] ity Address [address] [place] [address] Care Team Providers Care Comic Illustrator Name Role Phone Unavailable Primary Care Provider Unavailabl e Social History Tobacco Use Types Packs/Day Years Used Date Smoking Tobacco: Never Assessed Sex and Gender Information Value Date Recorded Sex Assigned at Not on file Gender Identity Not on file Sexual Orientation Not on file Plan of Treatment Health Maintenance Due Date Last Done Comments DTaP,Tdap,and Td Vaccines (1 - Tdap) 1976 Zoster Vaccines (1 of 2) 2007 Pneumococcal Vaccine: 65+ Ye ars (1 of 1 - PCV) 2022 COVID-19 Vaccine ( - 2023-2 5 season) 2024 Influenza Vaccine (#1) 2024 RSV Immunization Patients 60 + Years Old (1 - 1-dose 75+ series) 2032 HIB Vaccines Aged Out No longer eligi ble based on patient's age to complete this topic HPV Vaccines Aged Out No longer eligi ble based on patient's age to complete this topic Hepatitis A Vaccines Aged Out No long er eligible based on patient's age to complete this topic Hepatitis B Vaccines Aged Out No long er eligible based on patient's age to complete this topic IPV Vaccines Aged Out No longer eligi ble based on patient's age to complete this topic MMR Vaccines Aged Out No longer eligi ble based on patient's age to complete this topic Meningococcal ACWY Vaccine Aged Out N o longer eligible based on patient's age to complete this topic RSV Immunization Patients Un hebert 20 months Aged Out No longer eligible b ased on patient's age to complete this topic Varicella Vaccines Aged Out No longer eligible based on patient's age to complete this topic
== END 2024-07-20 11:01 | disposition home or self-care (01) ==
PROVIDERS: PCP Internal Medicine; Visit Provider Internal Medicine
DX: I48.92 Unspecified atrial flutter (principal); I48.0 Paroxysmal atrial fibrillation; Z95.3 Presence of xenogenic heart valve; I44.7 Left bundle-branch block, unspecified; G47.33 Obstructive sleep apnea (adult) (pediatric); Z99.89 Dependence on other enabling machines and devices
CPT/HCPCS: 99214

== ENCOUNTER → 2024-07-20 10:41 | Outpatient (BNVA) | payer MEDICARE, OTHER, SELFPAY | PROVIDERS: PCP Internal Medicine; Visit Provider Internal Medicine | DX: I48.92 Unspecified atrial flutter (principal); I48.0 Paroxysmal atrial fibrillation; I44.7 Left bundle-branch block, unspecified; G47.33 Obstructive sleep apnea (adult) (pediatric); Z95.3 Presence of xenogenic heart valve; Z99.89 Dependence on other enabling machines and devices | CPT/HCPCS: 99212 ==

== ENCOUNTER 2025-03-30 10:24 | Outpatient (AMB) | payer MEDICARE, SELFPAY ==
[2025-03-30 10:41] VITALS: BP 132/60; PULSE 69; RESP 18; TEMP 36.4; O2SAT 95; BMI 41.9
--- NOTE | 2025-03-30 10:41 | A.OFFPC_ITS ---
Vital Signs 03/30/25 10:41 Height 5 ft 4 in Weight 244 lb BMI 41.9 BP 132/60 Blood Pressure Location Lt brachial Position Sitting Respiration 18 Pulse 69 Pulse Source Pulse Oximeter Temp 97.5 F Temp Source Temporal Artery Scan Pulse Oximetry (%) 95 Oxygen Delivery Method Room Air Intake Visit Reasons: ESA Dr. Vo ,Arthritis,Medications Event Marketing Representative Required: No Accompanied by: Self / Same As Patient Allergies No Known Allergies (No Known Allergies*) Allergy (Verified 03/30/25 11:05) Medication List - Last Reconciled 03/30/25 by LEAH Booth celecoxib 200 mg PO BID ketoconazole 2% 1 appl topical BID 4 weeks ketoconazole 2% 1 appl topical BID methotrexate sodium 20 mg PO TU@0900 metoprolol tartrate 25 mg PO BID multivitamin 1 tab PO DAILY warfarin 5 mg PO DAILY Tobacco use date assessed: 03/30/25 Fall risk assessment: No Falls in past year Last assessed Fall Risk: 03/30/25 Dental Screening Dental Screen Date: 03/30/25 Did you have a dental visit in the last 12 months?: No Did you have a dental problem in the last 6 months where you did not have access to dental care?: No Was dental information given to patient?: No HPI ESA Dr. Vo ,Arthritis,Medications HPI Details The patient is a 69-year-old male presenting to transition to care from Dr. Vo who retired. He is presenting with concerns related to rheumatoid arthritis management and a foot blister. The patient has been diagnosed with rheumatoid arthritis and has been on methotrexate for management. He has been experiencing difficulties in obtaining methotrexate due to insurance issues, which has led to a reduction in dosage. The patient reports soreness in his fingers and has been taking half doses to stretch his medication supply. The patient also has a history of atrial fibrillation, left bundle branch block, and aortic stenosis, for which he underwent a transcatheter aortic valve replacement (TAVR). He is currently on anticoagulation therapy with Coumadin and is aware of the need for regular monitoring. Additionally, the patient has obstructive sleep apnea and uses a CPAP machine regularly. The patient reports a foot blister that has been recurring and is currently healing. He has been managing it with topical ointments and by changing footwear to alleviate pressure. [facility] Medical History PAF (paroxysmal atrial fibrillation) JANNETTE on CPAP Rheumatoid arthritis, unspecified LBBB (left bundle branch block) PAF (paroxysmal atrial fibrillation) Surgical History Status post aortic valve replacement with bioprosthetic valve History of cardiac cath Hx of cardiac cath Family History Mother No problems noted. Father No problems noted. Social History Household Members: Spouse Housing: House Do you presently have visiting nurse or other home services: No Alcohol intake: current Alcohol intake frequency: a few times a week Patient Tobacco Use Status: Former Tobacco user e-Cigarette/Vaping Use: Never Used Second Hand Smoke Exposure: No service: No Current occupational status: retired Cognitive needs: No Hearing needs: No Vision needs: Yes (glasses) Questionnaire PHQ-9 Over the last 2 weeks, how often have you been bothered by any of the following problems? 1. Little interest or pleasure in doing things: not at all 2. Feeling down, depressed, or hopeless: not at all 3. Trouble falling or staying asleep, or sleeping too much: not at all 4. Feeling tired or having little energy: not at all 5. Poor appetite or overeating: not at all 6. Feeling bad about yourself - or that you are a failure or have let yourself or your family down: not at all 7. Trouble concentrating on things, such as reading the newspaper or watching television: not at all 8. Moving or speaking so slowly that other people could have noticed. Or the opposite - being so fidgety or restless that you have been moving around a lot more than usual: not at all 9. Thoughts that you would be better off or of hurting yourself in some way: not at all Total score: 0 Source: Developed by Drs. Navin Gomez, Drea Lockwood, Renny Andrew and colleagues, with an educational kranthi from [employer]. Thrive Questionnaire Date Thrive assessed: 03/28/25 I am a: Patient What is your living situation today?: I have a steady place to live THRIVE Score: 0 AUDIT C Alcohol Use Questionnaire (AUDIT-C) 1. How often do you have a drink containing alcohol?: 2-4 times a month Total Score: 2 INNA-7 AMB Questionnaire INNA-7 Date INNA - 7 assessed: 11/26/22 Feeling nervous, anxious, or on edge: 0 = Not at all Source: Developed by Drs. Navin Gomez, Drea Lockwood, Renny Andrew and colleagues, with an educational kranthi from [employer]. Review of Systems Const Denies headache(s) Eyes Denies loss of vision ENT Denies vertigo, Denies dizziness, Denies headache(s) and Denies sore throat Card Denies chest pain, Denies leg edema and Denies lightheadedness Resp Denies cough, Denies hemoptysis and Denies wheezing GI Denies abdominal pain, Denies melena, Denies constipation, Denies diarrhea and Denies vomiting Denies dysuria, Denies urinary frequency and Denies urinary urgency Musc Reports arthralgias (fingers), Reports joint swelling (fingers), Denies numbness and Denies tingling Skin/Breast Reports other (healing blister on left foot ) Neuro Denies Abnormal speech present, Denies behavioral changes, Denies vertigo, Denies dizziness, Denies headache(s), Denies loss of vision, Denies memory loss, Denies numbness and Denies tingling Psych Denies anxiety, Denies behavioral changes, Denies depression, Denies memory loss and Denies panic attacks Sergo/Lymph Denies easy bleeding and Denies easy bruising Aller/Immun Denies wheezing Physical exam (Primary Care) Vital Signs: Last Vital Signs Temp 97.5 F 03/30/25 10:41 Pulse 69 03/30/25 10:41 Resp 18 03/30/25 10:41 BP 132/60 03/30/25 10:41 Pulse Ox 95 03/30/25 10:41 Oxygen Delivery Method Room Air 03/30/25 10:41 BMI result Body Mass Index 41.9 Tobacco/Smoking Status: Tobacco use Status Tobacco use date assessed 03/30/25 03/30/25 10:48 Patient Tobacco Use Status Former Tobacco user 03/30/25 10:48 e-Cigarette/Vaping Use Never Used 03/30/25 10:48 PHQ-9: PHQ-9 Score PHQ-9: Total score 0 03/30/25 11:12 Thrive Assessment: Date of Thrive Assessment Date Thrive assessed 03/28/25 03/30/25 10:48 Const General: healthy appearing, no acute distress, alert and awake Nutritional Appearance: well nourished Orientation/consciousness: oriented to person, oriented to place and oriented to time HENMT Ears: TM's normal bilaterally General nose exam: Normal nasal mucous membranes and turbinates present Eyes Conjunctivae: conjunctivae normal Sclerae: sclerae normal Pupils: Equal, round and reactive pupils present Neck Neck: Yes no lymphadenopathy and Yes no JVD Thyroid: Thyroid normal Carotids: no bruits Resp Effort & Inspection: normal respiratory effort and not tachypneic Auscultation: no crackles, no rales, no rhonchi and no wheezes Cardio Rate: regular rate Rhythm: regular rhythm Heart sounds: Murmur heart sound present systolic II/ and normal S1 and S2 GI Palpation (GI): Soft to palpation, nontender, no hepatomegaly and no splenomegaly Auscultation: normal bowel sounds Skin General skin exam: dry skin Wounds: wounds noted (right 2nd &3rd toe healing blistered area) Neuro General: oriented to person, oriented to place and oriented to time Cranial nerves: Yes Equal, round and reactive pupils present Speech: No Abnormal speech present Gait exam (Neuro): Normal gait present Motor exam (neuro): no tremor noted Extrem Right upper extremity: full ROM and Extremity exam: right hand Details: swelling (fingers) Left upper extremity: full ROM and hand (fingers) Right lower extremity: full ROM; no edema Left lower extremity: full ROM; no edema Psych Mental Status: mental status grossly normal Speech and movement: Normal speech and movement present Affect: normal affect Attitude: cooperative Thought process: Normal thought process present Coding Level of Care Code Est Pt Level 4 (77389) Diagnoses Hypertension, unspecified type I10 Hypertension type: unspecified Status post aortic valve replacement with bioprosthetic valve Z95.3 PAF (paroxysmal atrial fibrillation) I48.0 LBBB (left bundle branch block) I44.7 Rheumatoid arthritis involving multiple sites, unspecified whether rheumatoid factor present M06.9 Rheumatoid arthritis location: multiple sites Rheumatoid factor presence: unspecified presence JANNETTE on CPAP G47.33; Z99.89 Blister of toe of right foot, subsequent encounter S90.424D Encounter type: subsequent encounter Laterality: right Time Spent (min) 39 Assessment & Plan Assessment & Plan (1) Hypertension: Code(s): I10 - Essential (primary) hypertension Category: Medical Qualifiers: Hypertension type: unspecified Qualified Code(s): I10 - Essential (primary) hypertension Plan: Blood pressure 132/60 mm Hg within goal Reinforced low-salt diet Continue metoprolol tartrate 25 mg b.i.d. (2) Status post aortic valve replacement with bioprosthetic valve: Code(s): Z95.3 - Presence of xenogenic heart valve Category: Surgical Plan: Continue warfarin 5 mg daily (3) PAF (paroxysmal atrial fibrillation): Code(s): I48.0 - Paroxysmal atrial fibrillation Category: Medical Plan: In the EKG from Apr, atrial flutter with rapid rate with a left bundle morphology. Rate of 144/Min. Post cardioversion in the emergency room, back in sinus rhythm in 70s. Has left bundle-branch block. He remains only on a small dose of beta-blockers due to lowish blood pressures. Otherwise, continue anticoagulation without changes. Prior to this, cardioversion was many years ago. Also tried sotalol but that led to QT prolongation. Has seen EP but refusing ablation. He wants to get ablation only if it is very frequent. Discussed about this today. Emergency precautions as necessary. In the last echocardiogram from June 2023, moderately dilated left atrium. LVEF 52%. (4) LBBB (left bundle branch block): Code(s): I44.7 - Left bundle-branch block, unspecified Category: Medical Plan: Chronic. Asymptomatic (5) Rheumatoid arthritis, unspecified: Code(s): M06.9 - Rheumatoid arthritis, unspecified Category: Medical Qualifiers: Rheumatoid arthritis location: multiple sites Rheumatoid factor presence: unspecified presence Qualified Code(s): M06.9 - Rheumatoid arthritis, unspecified Plan: The patient is experiencing difficulties in obtaining methotrexate due to insurance issues, which has led to a reduction in dosage. A referral to a new country director is being pursued to address this issue and ensure proper manag ement of his condition. In the interim, the patient is advised to continue with the current medication regimen and monitor symptoms closely. The patient medications were refilled temporarily until he is able to be seen by Rheumatology. Labs ordered to monitor his liver and kidney function. (6) JANNETTE on CPAP: Code(s): G47.33 - Obstructive sleep apnea (adult) (pediatric); Z99.89 - Dependence on other enabling machines and devices Category: Medical Plan: Continue CPAP (7) Blister of toe: Code(s): S90.426A - Blister (nonthermal), unspecified lesser toe(s), initial encounter Category: Medical Qualifiers: Encounter type: subsequent encounter Laterality: right Qualified Code(s): S90.424D - Blister (nonthermal), right lesser toe(s), subsequent encounter Plan: The patient is advised to continue using topical ointments and change footwear to alleviate pressure on the affected area. Monitoring for signs of infection is recommended, and follow-up care will be provided as needed. Orders: Orders Comprehensive [place]. Panel Fast 03/31/25 G47.33 - Obstructive sleep apnea (adult) (pediatric), I10 - Essential (primary) hypertension, I44.7 - Left bundle-branch block, unspecified, I48.0 - Paroxysmal atrial fibrillation, I48.92 - Unspecified atrial flutter, M06.9 - Rheumatoid arthritis, unspecified, Z95.3 - Presence of xenogenic heart valve, Z99.89 - Dependence on other enabling machines and devices Vitamin D 25-OH Total 03/31/25 G47.33 - Obstructive sleep apnea (adult) (pediatric), I10 - Essential (primary) hypertension, I44.7 - Left bundle-branch block, unspecified, I48.0 - Paroxysmal atrial fibrillation, I48.92 - Unspecified atrial flutter, M06.9 - Rheumatoid arthritis, unspecified, Z95.3 - Presence of xenogenic heart valve, Z99.89 - Dependence on other enabling machines and devices NT Pro B Type Natriuretic Pept 03/31/25 G47.33 - Obstructive sleep apnea (adult) (pediatric), I10 - Essential (primary) hypertension, I44.7 - Left bundle-branch block, unspecified, I48.0 - Paroxysmal atrial fibrillation, I48.92 - Unspecified atrial flutter, M06.9 - Rheumatoid arthritis, unspecified, Z95.3 - Presence of xenogenic heart valve, Z99.89 - Dependence on other enabling machines and devices Vitamin B12 and Folate 3 Months G47.33 - Obstructive sleep apnea (adult) (pediatric), I10 - Essential (primary) hypertension, I44.7 - Left bundle-branch block, unspecified, I48.0 - Paroxysmal atrial fibrillation, I48.92 - Unspecified atrial flutter, M06.9 - Rheumatoid arthritis, unspecified, Z95.3 - Presence of xenogenic heart valve, Z99.89 - Dependence on other enabling machines and devices TSH reflex Free T4 3 Months G47.33 - Obstructive sleep apnea (adult) (pediatric), I10 - Essential (primary) hypertension, I44.7 - Left bundle-branch block, unspecified, I48.0 - Paroxysmal atrial fibrillation, I48.92 - Unspecified atrial flutter, M06.9 - Rheumatoid arthritis, unspecified, Z95.3 - Presence of xenogenic heart valve, Z99.89 - Dependence on other enabling machines and devices Lipid Panel 3 Months G47.33 - Obstructive sleep apnea (adult) (pediatric), I10 - Essential (primary) hypertension, I44.7 - Left bundle-branch block, unspecified, I48.0 - Paroxysmal atrial fibrillation, I48.92 - Unspecified atrial flutter, M06.9 - Rheumatoid arthritis, unspecified, Z95.3 - Presence of xenogenic heart valve, Z99.89 - Dependence on other enabling machines and devices Complete Blood Count Auto Diff 03/31/25 G47.33 - Obstructive sleep apnea (adult) (pediatric), I10 - Essential (primary) hypertension, I44.7 - Left bundle-branch block, unspecified, I48.0 - Paroxysmal atrial fibrillation, I48.92 - Unspecified atrial flutter, M06.9 - Rheumatoid arthritis, unspecified, Z95.3 - Presence of xenogenic heart valve, Z99.89 - Dependence on other enabling machines and devices Lipid Panel 03/31/25 G47.33 - Obstructive sleep apnea (adult) (pediatric), I10 - Essential (primary) hypertension, I44.7 - Left bundle-branch block, unspecified, I48.0 - Paroxysmal atrial fibrillation, I48.92 - Unspecified atrial flutter, M06.9 - Rheumatoid arthritis, unspecified, Z95.3 - Presence of xenogenic heart valve, Z99.89 - Dependence on other enabling machines and devices UA CC w/rflx Micro + Cult 03/31/25 G47.33 - Obstructive sleep apnea (adult) (p ediatric), I10 - Essential (primary) hypertension, I44.7 - Left bundle-branch block, unspecified, I48.0 - Paroxysmal atrial fibrillation, I48.92 - Unspecified atrial flutter, M06.9 - Rheumatoid arthritis, unspecified, Z95.3 - Presence of xenogenic heart valve, Z99.89 - Dependence on other enabling machines and devices TSH reflex Free T4 03/31/25 G47.33 - Obstructive sleep apnea (adult) (pediatric), I10 - Essential (primary) hypertension, I44.7 - Left bundle-branch block, unspecified, I48.0 - Paroxysmal atrial fibrillation, I48.92 - Unspecified atrial flutter, M06.9 - Rheumatoid arthritis, unspecified, Z95.3 - Presence of xenogenic heart valve, Z99.89 - Dependence on other enabling machines and devices Vitamin B12 and Folate 03/31/25 G47.33 - Obstructive sleep apnea (adult) (pediatric), I10 - Essential (primary) hypertension, I44.7 - Left bundle-branch block, unspecified, I48.0 - Paroxysmal atrial fibrillation, I48.92 - Unspecified atrial flutter, M06.9 - Rheumatoid arthritis, unspecified, Z95.3 - Presence of xenogenic heart valve, Z99.89 - Dependence on other enabling machines and devices Complete Blood Count Auto Diff 3 Months G47.33 - Obstructive sleep apnea (adult) (pediatric), I10 - Essential (primary) hypertension, I44.7 - Left bundle-branch block, unspecified, I48.0 - Paroxysmal atrial fibrillation, I48.92 - Unspecified atrial flutter, M06.9 - Rheumatoid arthritis, unspecified, Z95.3 - Presence of xenogenic heart valve, Z99.89 - Dependence on other enabling machines and devices Comprehensive [place]. Panel Fast 3 Months G47.33 - Obstructive sleep apnea (adult) (pediatric), I10 - Essential (primary) hypertension, I44.7 - Left bundle-branch block, unspecified, I48.0 - Paroxysmal atrial fibrillation, I48.92 - Unspecified atrial flutter, M06.9 - Rheumatoid arthritis, unspecified, Z95.3 - Presence of xenogenic heart valve, Z99.89 - Dependence on other enabling m achines and devices UA CC w/rflx Micro + Cult 3 Months G47.33 - Obstructive sleep apnea (adult) (pediatric), I10 - Essential (primary) hypertension, I44.7 - Left bundle-branch block, unspecified, I48.0 - Paroxysmal atrial fibrillation, I48.92 - Unspecified atrial flutter, M06.9 - Rheumatoid arthritis, unspecified, Z95.3 - Presence of xenogenic heart valve, Z99.89 - Dependence on other enabling machines and devices Medications: New folic acid 1 mg PO DAILY 90 tabs 3RF celecoxib 200 mg PO BID 60 caps 0RF Changed From methotrexate sodium 20 mg PO TU@0900 To methotrexate sodium 20 mg (8 x 2.5 mg) PO TU@0900 104 tabs 1RF 90 days
--- OUTSIDE RECORDS SUMMARY | 2025-03-30 12:20 | XMS_ITS | Clinical Summary ---
Author Organization [facility] ity Address [address] [place] [address] Care Team Providers Care Travel Writer Name Role Phone Unavailable Primary Care Provider Unavailabl e Social History Tobacco Use Types Packs/Day Years Used Date Smoking Tobacco: Never Assessed Sex and Gender Information Value Date Recorded Sex Assigned at Not on file Legal Sex Male 7:57 PM EST Gender Identity Not on file Sexual Orientation Not on file Plan of Treatment Health Maintenance Due Date Last Done Comments DTaP,Tdap,and Td Vaccines (1 - Tdap) 1976 Pneumococcal Vaccine: 50+ Ye ars (1 of 1 - PCV) 2007 Zoster Vaccines (1 of 2) 2007 Depression Screening 06/16/2024 COVID-19 Vaccine (1 - 2023-2 5 season) 2025 Influenza Vaccine (#1) 2025 RSV Immunization Adult Patie nts (1 - 1-dose 75+ series) 2032 HIB [...] patient's age to complete this topic Meningococcal B Vaccine Aged Out No l onger eligible based on patient's age to complete this topic RSV Immunization Patients Un hebert 20 months Aged Out No longer eligible b ased on patient's age to complete this topic Varicella Vaccines Aged Out No longer eligible based on patient's age to complete this topic
== END 2025-03-30 11:37 | disposition home or self-care (01) ==
LOC: HO.HMCH 10:25
DX: I10 Essential (primary) hypertension (principal); Z95.3 Presence of xenogenic heart valve; I48.0 Paroxysmal atrial fibrillation; I44.7 Left bundle-branch block, unspecified; M06.9 Rheumatoid arthritis, unspecified; G47.33 Obstructive sleep apnea (adult) (pediatric); Z99.89 Dependence on other enabling machines and devices; S90.424D Blister (nonthermal), right lesser toe(s), subsequent encounter

== ENCOUNTER → 2025-03-30 10:24 | Outpatient (BNVA) | payer MEDICARE, SELFPAY | PROVIDERS: PCP Internal Medicine | DX: I10 Essential (primary) hypertension (principal); M06.9 Rheumatoid arthritis, unspecified; G47.33 Obstructive sleep apnea (adult) (pediatric); I48.0 Paroxysmal atrial fibrillation; I44.7 Left bundle-branch block, unspecified; S90.424D Blister (nonthermal), right lesser toe(s), subsequent encounter; X58.XXXD Exposure to other specified factors, subsequent encounter; Z79.01 Long term (current) use of anticoagulants; Z95.3 Presence of xenogenic heart valve; Z99.89 Dependence on other enabling machines and devices | CPT/HCPCS: 96127; 99212 ==

== ENCOUNTER 2025-03-31 10:47 | Outpatient (REF) | payer MEDICARE, SELFPAY ==
[2025-03-31 11:03] LABS: MANUAL DIFF FLAG NO
[2025-03-31 11:28] LABS: Hematocrit 40.9 % (42.0-52.0); Hemoglobin 13.6 g/dl (14.0-18.0); Imm Gran Abs Auto 0.01 X10*3/uL (0.00-0.03); Imm Gran Pct Auto 0.2 % (0.0-0.4); Lymphocytes Absolute Auto 1.4 X10*3/uL (1.2-4.9); Mean Corpuscular HGB Conc 33.3 g/dl (31.0-36.0); Mean Corpuscular Hemoglobin 32.9 pg (27.0-33.0); Mean Corpuscular Volume 99.0 fL (80.0-98.0); NRBC Abs Auto 0.000 X10*3/uL (0.0-0.012); NRBC Pct Auto 0.0 /100WBC (0.0-0.2); Platelet Count 223 X10*3/uL (160-400); Red Blood Count 4.13 X10*6/uL (4.60-5.80); White Blood Count 5.3 X10*3/uL (4.8-10.8)
[2025-03-31 11:34] LABS: Appearance Urine Clear; Glucose Urine UA Negative (Negative); PH 5.5 (5.0-9.0); Specific Gravity - Urine 1.020 (1.005-1.025)
[2025-03-31 12:12] LABS: NT Pro B Type Natriuretic Pept 318.2 pg/mL (<300)
[2025-03-31 12:26] LABS: Alanine Aminotransferase 27 U/L (0-40); Albumin Level 4.3 g/dL (3.5-5.0); Alkaline Phosphatase 57 U/L (39-117); Anion Gap 10 (12-20); Aspartate Amino Transferase 29 U/L (5-37); Blood Urea Nitrogen 19 mg/dL (9-16); Calcium 9.3 mg/dL (8.4-10.2); Carbon Dioxide 29 mmol/L (22-29); Chloride 110 mmol/L (96-108); Cholesterol 204 mg/dL (<200); Estimated Glomerular Filt Rate > 60; HDL Cholesterol 41 mg/dL (>40); Potassium 4.7 mmol/L (3.3-5.1); Sodium 144 mmol/L (135-145); Total Protein 6.8 g/dL (6.5-8.0); Triglycerides 121 mg/dL (<150)
[2025-03-31 12:41] LABS: Folate 9.6 ng/mL (> or = 4.0); Vitamin B12 183 pg/mL (200-900)
--- OUTSIDE RECORDS SUMMARY | 2025-03-31 13:34 | XMS_ITS | Clinical Summary ---
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
== END 2025-03-31 10:48 | disposition home or self-care (01) ==
LOC: HO.LAB 10:47
DX: I10 Essential (primary) hypertension (principal); I48.0 Paroxysmal atrial fibrillation; I44.7 Left bundle-branch block, unspecified; I48.92 Unspecified atrial flutter; M06.9 Rheumatoid arthritis, unspecified; G47.33 Obstructive sleep apnea (adult) (pediatric); Z99.89 Dependence on other enabling machines and devices; Z95.3 Presence of xenogenic heart valve
CPT/HCPCS: 36415; 80053; 80061; 81003; 82306; 82607; 82746; 83880; 84443; 85025

== ENCOUNTER 2025-05-30 11:00 | Outpatient (REF) | payer MEDICARE, SELFPAY ==
[2025-05-30 13:29] LABS: MANUAL DIFF FLAG NO
[2025-05-30 13:44] LABS: Hematocrit 40.2 % (42.0-52.0); Hemoglobin 13.0 g/dl (14.0-18.0); Imm Gran Abs Auto 0.02 X10*3/uL (0.00-0.03); Imm Gran Pct Auto 0.3 % (0.0-0.4); Lymphocytes Absolute Auto 1.8 X10*3/uL (1.2-4.9); Mean Corpuscular HGB Conc 32.3 g/dl (31.0-36.0); Mean Corpuscular Hemoglobin 32.0 pg (27.0-33.0); Mean Corpuscular Volume 99.0 fL (80.0-98.0); NRBC Abs Auto 0.000 X10*3/uL (0.0-0.012); NRBC Pct Auto 0.0 /100WBC (0.0-0.2); Platelet Count 240 X10*3/uL (160-400); Red Blood Count 4.06 X10*6/uL (4.60-5.80); White Blood Count 6.0 X10*3/uL (4.8-10.8)
[2025-05-30 13:53] LABS: Alanine Aminotransferase 19 U/L (0-40); Albumin Level 4.2 g/dL (3.5-5.0); Alkaline Phosphatase 64 U/L (39-117); Anion Gap 13 (12-20); Aspartate Amino Transferase 24 U/L (5-37); Blood Urea Nitrogen 21 mg/dL (9-16); Calcium 9.3 mg/dL (8.4-10.2); Carbon Dioxide 26 mmol/L (22-29); Chloride 107 mmol/L (96-108); Estimated Glomerular Filt Rate > 60; Potassium 4.7 mmol/L (3.3-5.1); Sodium 141 mmol/L (135-145); Total Protein 6.8 g/dL (6.5-8.0)
[2025-05-31 04:59] LABS: HBS Num1 0.00 mIU/mL (0-7.99); HBc Num1 0.10 S/CO (0.00-0.79); HBsAGNum1 0.53 S/CO (0.00-0.99); HIV Num 1 0.09 S/CO (0.00-0.99); Hepatitis B Surface Antigen Negative (Negative); ~HepC Num1 0.52 S/CO (0.00-0.79); ~Hepatitis B Surface Antibody NONREACTIVE (Nonreactive); ~Hepatitis C Antibody Nonreactive (Nonreactive)
[2025-06-01 18:03] LABS: Quantiferon TB Gold Plus 1 NEGATIVE (NEGATIVE); TB Test (QFT) Mitogen -Nil 7.55 IU/mL; TB Test (QFT) Nil 0.03 IU/mL; TB Test (QFT) Plus TB1 -Nil 0.01 IU/mL; TB Test (QFT) Plus TB2 -Nil 0.01 IU/mL
== END 2025-05-30 11:01 | disposition home or self-care (01) ==
LOC: HO.HKASLDS 11:00
PROVIDERS: Visit Provider Student in an Organized Health Care Education/Training Program
DX: M06.9 Rheumatoid arthritis, unspecified (principal); Z79.899 Other long term (current) drug therapy; Z01.84 Encounter for antibody response examination; Z11.4 Encounter for screening for human immunodeficiency virus [HIV]
CPT/HCPCS: 36415; 80053; 85025; 85652; 86140; 86200; 86431; 86480; 86704; 86706; 86803; 87340; 87389

== ENCOUNTER 2025-05-30 11:00 | Outpatient (AMB) | payer MEDICARE, SELFPAY ==
[2025-05-30 11:07] VITALS: BP 122/72; PULSE 54; O2SAT 99; BMI 42.4
--- NOTE | 2025-05-30 11:07 | MHC.OFFVIS ---
Vital Signs 05/30/25 11:07 Height 5 ft 4 in Weight 246 lb 14.684 oz BMI 42.4 BP 122/72 Blood Pressure Location Lt brachial Position Sitting Pulse 54 Pulse Source Pulse Oximeter Pulse Oximetry (%) 99 Oxygen Delivery Method Room Air Intake Visit Reasons: RA Intake Note: Patient presents for RA, he was last seen by Yury Thomas from [facility]. Hand Inspector Required: No Accompanied by: Self / Same As Patient Allergies No Known Allergies (No Known Allergies*) Allergy (Verified 05/30/25 11:12) HPI Comments Details: 69 year old male with a PMH of rheumatoid arthritis diagnosed 15 years ago, AV replacement on warfarin, hip replacement 6 years ago and knee replacement 15 years ago , carpal tunnel in both hands presented to me as new patient for management of underlying rheumatoid arthritis. He has been following [facility] for the past 15 years or so. He was being managed on methotrexate 8 pills every Friday, along with folic acid 1 mg every other day. His disease activity is under control with methotrexate. His last blood work showed normal AST ALT and kidney function. He has a negative QuantiFERON from this year. His CBC was within normal limits. 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 * Mineralization in the TFCC cartilage which can be seen in the setting of chondrocalcinosis. * Moderate degenerative changes of the hand. FH: grandmother and mOther has RA PHYSICAL EXAM General: Comfortable CVS: RRR Respiratory: clear to auscultation bilaterally. Good respiratory effort Skin: No lesions seen MSK: PATIENT IS ABLE TO MAKE A FIST BILATERALLY. Patient has ulnar deviation of the hands bilaterally. He has nontender PIPs MCPs. No active synovitis noted on exam. On the left hand, there is squaring of his CMC. Deformities of the hand noted bilaterally. He has full range of motion in the shoulders. Strength is 5/5. 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 Patient has good internal external rotation of the hip as well as flexion-extension of the knees. On feet examination, his right foot is significantly deformed, more than the left foot. However there is no active synovitis noted. The right ankle is chronically swollen, nontender. REPLACED BY [facility] Medical History PAF (paroxysmal atrial fibrillation) JANNETTE on CPAP Rheumatoid arthritis, unspecified LBBB (left bundle branch block) PAF (paroxysmal atrial fibrillation) Surgical History Status post aortic valve replacement with bioprosthetic valve History of cardiac cath Hx of cardiac cath Family History Mother No problems noted. Father No problems noted. Social History Household Members: Spouse Housing: House Do you presently have visiting nurse or other home services: No Alcohol intake: current Alcohol intake frequency: a few times a week Patient Tobacco Use Status: Former Tobacco user e-Cigarette/Vaping Use: Never Used Second Hand Smoke Exposure: No service: No Current occupational status: retired Cognitive needs: No Hearing needs: No Vision needs: Yes (glasses) Physical Exam Vital Signs: Last Vital Signs Pulse 54 05/30/25 11:07 BP 122/72 05/30/25 11:07 Pulse Ox 99 05/30/25 11:07 Oxygen Delivery Method Room Air 05/30/25 11:07 BMI result Body Mass Index 42.4 Assessment & Plan Assessment & Plan (1) Rheumatoid arthritis, unspecified: Code(s): M06.9 - Rheumatoid arthritis, unspecified Category: Medical Qualifiers: Rheumatoid arthritis location: multiple sites Rheumatoid factor presence: unspecified presence Qualified Code(s): M06.9 - Rheumatoid arthritis, unspecified (2) Encounter for medication management: Code(s): Z79.899 - 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 Patient is to continue methotrexate 8 pills once a week along with folic acid every other day. He states that he gets folic acid over the counter at it is cheaper that way. He takes 1 mg every other day. He was advised to take 1 mg daily with the methotrexate to mitigate side effects of the methotrexate. He also takes Celebrex 200 mg daily as needed for pain control, he is currently on warfarin. He was advised not to exceed this dose due to the increased risk of bleeding as he is also on warfarin. His last labs including CBC CMP were within normal limits. Today I will repeat blood work including CBC CMP ESR CRP, RF, CCP, hepatitis panel as well as QuantiFERON His last chest x-ray was last year, I will update his chest x-ray as well as do pulmonary function tests as longstanding rheumatoid arthritis can affect pulmonary function. He does not endorse any shortness of breath today #Long-term Current Use of Methotrexate Discussed with patient the benefits and risks of methotrexate for managing their rheumatic condition Benefits include reduced pain, reduced mortality, maintenance of remission and reduction of flares Risks include oral ulcers, photosensitivity, hepatotoxicity, hematologic toxicity, pneumonitis, flu-like symptoms (especially day after administration), nodulosis, lymphomas ? Limit alcohol and avoid Bactrim ? Monitoring: CBC, BMP, LFTs every 3-4 months and hepatitis serologies as needed Follow up in 3 months Orders: Orders C Reactive Protein Today Z79.899 - Other termite renewal inspector (current) drug therapy Hepatitis B,C Profile Today Z79.899 - Other termite renewal inspector (current) drug therapy Quantiferon TB Gold Plus 1 Today Z79.899 - Other senior living (current) drug therapy HIV Ab/Ag Today Z79.899 - Other senior living (current) drug therapy XR chest 1V Today M06.9 - Rheumatoid arthritis, unspecified Complete Blood Count Auto Diff Today Z79.899 - Other senior living (current) drug therapy Comprehensive Met. Panel Today Z79.899 - Other termite renewal inspector (current) drug therapy Erythrocyte Sedimentation Rate Today Z79.899 - Other termite renewal inspector (current) drug therapy Rheumatoid Factor Today M06.9 - Rheumatoid arthritis, unspecified Cyclic Citrullinated Peptide Today M06.9 - Rheumatoid arthritis, unspecified PFT pulmonary function test Today M06.9 - Rheumatoid arthritis, unspecified Medications: New celecoxib 200 mg PO DAILY 30 caps 3RF Refilled methotrexate sodium 20 mg (8 x 2.5 mg) PO TU@0900 96 tabs 1RF 90 days Discontinued celecoxib Discontinued Reason: Doctor's Order 200 mg PO BID 60 caps 0RF Coding Level of Care Code New Pt Level 4 (24178) Diagnoses Rheumatoid arthritis involving multiple sites, unspecified whether rheumatoid factor present M06.9 Rheumatoid arthritis location: multiple sites Rheumatoid factor presence: unspecified presence Encounter for medication management Z79.899
== END 2025-05-30 12:02 | disposition home or self-care (01) ==
LOC: HO.RHES 11:01
PROVIDERS: Visit Provider Student in an Organized Health Care Education/Training Program
DX: M06.9 Rheumatoid arthritis, unspecified (principal); Z79.899 Other long term (current) drug therapy
CPT/HCPCS: 99204